=== PATIENT | male | born 1955 | race Caucasian/White ===

== ENCOUNTER → 2017-12-16 13:47 | Outpatient (CLI) | payer BC, SELFPAY ==
--- NOTE | 2017-12-16 13:59 | XR_ITS ---
XR chest 2V HISTORY: ITS.REASON: SHORTNESS OF BREATH ORDERING PHYSICIAN: Donald Garcia PATIENT AGE: 62 years COMPARISON: None FINDINGS: The cardiomediastinal silhouette and pulmonary vascularity are within normal limits. The lungs are clear without infiltrates, suspicious nodules, or pleural effusions. No acute bony abnormalities. There are multilevel degenerative changes of the thoracic spine. IMPRESSION: Negative chest, no acute finding
[2017-12-16 14:23] LABS: INR 0.94 (0.9-1.1); Prothrombin Time 9.7 seconds (9.4-11.8)
[2017-12-16 14:25] LABS: Basophils # 0.1 K/mm3 (0-0.2); Basophils % 1.3 % (0.1-2.0); Eosinophils # 0.2 K/mm3 (0.0-0.4); Eosinophils % 2.7 % (0.1-12.0); Hematocrit 49.8 % (42.0-52.0); Hemoglobin 16.5 g/dL (14.1-18.0); Lymphocytes # 2.1 K/mm3 (0.7-4.5); Lymphocytes % 29.4 K/mm3 (10-50); Mean Corpuscular HGB Conc 33.2 g/dL (31.8-35.4); Mean Corpuscular Hemoglobin 27.6 pg (27.0-31.2); Mean Corpuscular Volume 83.2 fl (80-94); Mean Platelet Volume 7.8 fl (7.4-10.4); Monocytes # 0.5 K/mm3 (0.1-1.0); Monocytes % 6.7 % (1.7-9.3); Neutrophils # 4.2 K/mm3 (1.8-7.8); Neutrophils % 59.9 % (37.0-80.0); Platelet Count 261 K/mm3 (142-424); Red Blood Count 5.99 M/mm3 (4.60-6.20); Red Cell Distribution Width 13.4 % (11.5-17.5)
[2017-12-16 14:58] LABS: Hemoglobin A1C 5.3 % (0.0-7.0)
[2017-12-16 15:16] LABS: Alanine Aminotransferase 24 U/L (12-78); Albumin Level 3.9 gm/dL (3.4-5.0); Albumin/Globulin Ratio 1.1 (1.1-1.8); Alkaline Phosphatase 81 U/L (46-116); Anion Gap 15.6 mEq/L (5-15); Aspartate Amino Transferase 15 U/L (15-37); Bilirubin,Total 0.6 mg/dL (0.2-1.0); Blood Urea Nitrogen 17 mg/dL (7-18); Calcium 9.7 mg/dL (8.5-10.1); Carbon Dioxide 26 mmol/L (21.0-32.0); Chloride 106 mmol/L (98-107); Estimated Glomerular Filt Rate 67 ml/min (>60); GFR (African American) 82 ML/MIN (>60); Globulin 3.6 gm/dl (1.3-3.2); Glucose 92 mg/dL (74-106); Potassium 4.6 mmoL/L (3.5-5.1); Sodium 143 mmol/L (136-145); Total Protein,Serum 7.5 gm/dL (6.4-8.2)
== END ==
PROVIDERS: Visit Provider Orthopaedic Surgery
DX: Z01.818 Encounter for other preprocedural examination (principal); R07.9 Chest pain, unspecified; M17.12 Unilateral primary osteoarthritis, left knee; R68.89 Other general symptoms and signs; R82.90 Unspecified abnormal findings in urine; R73.09 Other abnormal glucose; R79.1 Abnormal coagulation profile
CPT/HCPCS: 36415; 71046; 80053; 83036; 85025; 85610

== ENCOUNTER → 2018-04-17 18:50 | Outpatient (REF) | payer BC, SELFPAY ==
[2018-04-17 19:13] LABS: Basophils # 0.1 K/mm3 (0-0.2); Basophils % 0.7 % (0.1-2.0); Eosinophils # 0.3 K/mm3 (0.0-0.4); Eosinophils % 3.2 % (0.1-12.0); Hemoglobin 14.4 g/dL (14.1-18.0); Lymphocytes # 1.8 K/mm3 (0.7-4.5); Lymphocytes % 19.1 K/mm3 (10-50); Mean Corpuscular HGB Conc 32.8 g/dL (31.8-35.4); Mean Corpuscular Hemoglobin 27.3 pg (27.0-31.2); Mean Corpuscular Volume 83.3 fl (80-94); Mean Platelet Volume 7.5 fl (7.4-10.4); Monocytes # 0.5 K/mm3 (0.1-1.0); Monocytes % 4.8 % (1.7-9.3); Neutrophils # 6.8 K/mm3 (1.8-7.8); Neutrophils % 72.3 % (37.0-80.0); Platelet Count 325 K/mm3 (142-424); Red Blood Count 5.28 M/mm3 (4.60-6.20); Red Cell Distribution Width 14.3 % (11.5-17.5); White Blood Count 9.3 K/mm3 (4.8-10.8)
[2018-04-17 20:48] LABS: Alanine Aminotransferase 20 U/L (12-78); Albumin Level 3.5 gm/dL (3.4-5.0); Albumin/Globulin Ratio 1.1 (1.1-1.8); Alkaline Phosphatase 109 U/L (46-116); Anion Gap 16.1 mEq/L (5-15); Aspartate Amino Transferase 13 U/L (15-37); Bilirubin,Total 0.4 mg/dL (0.2-1.0); Blood Urea Nitrogen 14 mg/dL (7-18); Calcium 8.7 mg/dL (8.5-10.1); Carbon Dioxide 23 mmol/L (21.0-32.0); Chloride 107 mmol/L (98-107); Chol/HDL Ratio 4.1 (1-3.5); Cholesterol 186 mg/dL (140-200); Creatinine,Serum 1.07 mg/dL (0.70-1.30); Estimated Glomerular Filt Rate 70 ml/min (>60); GFR (African American) 84 ML/MIN (>60); Globulin 3.2 gm/dl (1.3-3.2); Glucose 95 mg/dL (74-106); HDL Cholesterol 45 mg/dL (27-67); LDL Cholesterol 81 mg/dL (0-130); Potassium 4.1 mmoL/L (3.5-5.1); Sodium 142 mmol/L (136-145); T4 (Thyroxine) 8.8 ug/dl (4.7-13.3); Total Protein,Serum 6.7 gm/dL (6.4-8.2); Triglycerides 300 mg/dL (30-200); VLDL Cholesterol 60 mg/dL (0-40)
[2018-04-20 09:27] LABS: PSA, Free 0.34 ng/mL; Prostate Specific Ag 2.3 ng/mL (0.0-4.0); Vitamin D 25 Hydroxy 38.1 ng/mL (30.0-100.0)
== END ==
LOC: LAB 18:50
PROVIDERS: PCP Physician Assistant; Visit Provider Physician Assistant
DX: Z00.00 Encounter for general adult medical examination without abnormal findings (principal)
CPT/HCPCS: 80053; 80061; 82652; 84153; 84154; 84436; 84443; 85025

== ENCOUNTER 2020-06-17 09:38 | Emergency (ER) | payer MEDICARE, SELFPAY ==
[2020-06-17 09:39] VITALS: BP 139/78; PULSE 88; RESP 18; TEMP 37.2; O2SAT 98; BMI 35.3
--- NOTE | 2020-06-17 10:01 | HMH.EDGENADL ---
ED Disposition Clinical Impression: Elevated TSH, Transaminitis Fatigue Qualifiers: Fatigue type: unspecified Qualified Code(s): R53.83 - Other fatigue Disposition: Home, Self-Care Condition on Discharge: Good Referrals: Alexia House APRN [Primary Care Provider] - - Critical Care Critical Care Time: No Attestation: On 06/17/20, the high probability of a clinically significant, sudden or life threatening deterioration of the following system(s) required my full and direct attention, intervention and personal management. The time I documented below is in addition to time spent performing reported procedures but includes the following listed in this critical care notation. Medical Decision Making - Monster Inquiry Pt receiving controlled substance: No Vital Signs: 06/17/20 09:39 06/17/20 10:35 Temperature 99 F Temperature Source Oral Pulse Rate [Radial] 88 74 Respiratory Rate 18 18 Blood Pressure [Right Arm] 139/78 127/72 Blood Pressure Mean [Right Arm] 98 90 Blood Pressure Source [Right Arm] Automatic Cuff Blood Pressure Position [Right Arm] Sitting Sitting 02 Sat by Pulse Oximetry 98 96 Oxygen Delivery Method Room Air - Lab Data Lab Results 06/17/20 10:10: WBC 10.8, RBC 5.91, Hgb 16.5, Hct 48.4, MCV 81.9, MCH 27.9, MCHC 34.1, RDW 14.1, Plt Count 207, MPV 7.7, Neut % (Auto) 38.7, Lymph % (Auto) 55.3 H, [place] % (Auto) 3.2, Eos % (Auto) 0.6, Baso % (Auto) 2.3 H, Neut # (Auto) 4.2, Lymph # (Auto) 6.0 H, [place] # (Auto) 0.4, Eos # (Auto) 0.1, Baso # (Auto) 0.2, Total Counted 100, Neutrophils % (Manual) 40 L, Lymphocytes % (Manual) 51 H, Monocytes % (Manual) 7, Blast Cells % 2.0, Platelet Estimate Normal, Microcytosis 1+ 06/17/20 10:10: Sodium 134 L, Potassium 4.1, Chloride 102, Carbon Dioxide 25, Anion Gap 11.1, BUN 14, Creatinine 1.30 H, Estimated Creat Clear 88, Estimated GFR 55 L, Est GFR ( Amer) 67, Glucose 117 H, Calcium 8.8, Total Bilirubin 1.1, AST 90 H, ALT 89 H, Alkaline Phosphatase 112, Total Protein 7.1, Albumin 3.6, Globulin 3.5 H, Albumin/Globulin Ratio 1.0 L, TSH 6.82 H 06/17/20 10:40: Urine Color Yellow, Urine Appearance Clear, Urine pH 5.5, Ur Specific [place] >= 1.030, Urine Protein 1+, Urine Glucose (UA) Negative, Urine Ketones Negative, Urine Blood Trace-i, Urine Nitrate Negative, Urine Bilirubin 1+ A, Urine Urobilinogen 0.2, Ur Leukocyte Esterase Negative, Urine RBC 3-5, Urine WBC 3-5, Ur Squamous Epith Cells Occasional Result diagrams: 06/17/20 10:10 06/17/20 10:10 Orders (Tests/Meds): ED MEDICATIONS Discontinued Medications Generic Name Dose Route Start Last Admin Trade Name Freq PRN Reason Stop Dose Admin Sodium Chloride 1,000 mls @ 999 mls/hr 06/17/20 10:00 06/17/20 10:00 Sod Chlor 0.9% 1000ml Bag IV 06/17/20 11:00 999 mls/hr .Q1H1M AL Administration ORDERS Category Date Time Status Hepatitis Panel (4) Stat Lab 06/17/20 10:36 Ordered Medical Decision Narrative: 64yo M evaluated for weakness. Broad differential diagnosis. Discussed with the patient we may not find a definitive diagnosis for his concerns given they have been ongoing for greater than 2 weeks. CBC, CMP, UA were obtained. CBC is largely unremarkable. CMP shows mild dehydration without acute kidney injury. Also noted are elevation in his liver enzymes. In light of this, hepatitis panel was sent. Hepatitis panel is a send out and therefore will not be available today. Urinalysis was largely unremarkable. Also obtained a TSH which is high. Patient's had a previous TSH levels obtained here and they have all been elevated. Discussed with the patient and his at bedside that he should follow-up for likely hypothyroidism. General Adult HPI - General Chief complaint: Weakness Stated complaint: possible dehydration Time Seen by Provider: 06/17/20 10:02 Mode of Arrival: Ambulatory Limitations: No Limitations Description of Symptoms (Recalled from ER Triage Doc. by RN): TO ED
--- NOTE | 2020-06-17 10:16 | ECG_ITS ---
APPROVED REPORT Exam: Resting ECG HR:76 bpm ECG Measurements Heart Rate 76 AXES NH 168 P 65 QRSd 84 QRS 41 QT 398 T 45 QTc 447 Conclusion Normal sinus rhythm Normal ECG Electronically signed by : Ismael Adams, 06/18/2020 07:39:13
[2020-06-17 10:23] LABS: Basophils # 0.2 K/mm3 (0-0.2); Basophils % 2.3 % (0.1-2.0); Eosinophils # 0.1 K/mm3 (0.0-0.4); Eosinophils % 0.6 % (0.1-12.0); Hematocrit 48.4 % (42.0-52.0); Hemoglobin 16.5 g/dL (14.1-18.0); Lymphocytes % 55.3 % (10-50); Mean Corpuscular HGB Conc 34.1 g/dL (31.8-35.4); Mean Corpuscular Hemoglobin 27.9 pg (27.0-31.2); Mean Corpuscular Volume 81.9 fl (80-94); Mean Platelet Volume 7.7 fl (7.4-10.4); Monocytes # 0.4 K/mm3 (0.1-1.0); Monocytes % 3.2 % (1.7-9.3); Neutrophils # 4.2 K/mm3 (1.8-7.8); Neutrophils % 38.7 % (37.0-80.0); Platelet Count 207 K/mm3 (142-424); Red Blood Count 5.91 M/mm3 (4.60-6.20); Red Cell Distribution Width 14.1 % (11.5-17.5); White Blood Count 10.8 K/mm3 (4.8-10.8)
[2020-06-17 10:25] LABS: MANUAL DIFFERENTIAL MANUAL DIFFERENTIAL (MANUAL DIFF)
[2020-06-17 10:27] LABS: Chloride 102 mmol/L (98-107); Sodium 134 mmol/L (136-145)
[2020-06-17 10:28] LABS: Potassium 4.1 mmoL/L (3.5-5.1)
[2020-06-17 10:30] LABS: Alanine Aminotransferase 89 U/L (12-78); Albumin Level 3.6 g/dl (3.5-5.0); Alkaline Phosphatase 112 U/L (38-126); Aspartate Amino Transferase 90 U/L (17-59); Bilirubin,Total 1.1 mg/dl (0.2-1.3); Blood Urea Nitrogen 14 mg/dl (9-20); Creatinine Clearance Estimated 88 mL/min (50-200); Estimated Glomerular Filt Rate 55 ml/min (>60); GFR (African American) 67 ML/MIN (>60)
[2020-06-17 10:31] LABS: Anion Gap 11.1 mEq/L (5-15); Calcium 8.8 mg/dl (8.4-10.2); Carbon Dioxide 25 mmol/L (22.0-30.0); Globulin 3.5 g/dL (1.3-3.2); Glucose 117 mg/dl (74-100); Total Protein,Serum 7.1 g/dl (6.3-8.2)
[2020-06-17 10:35] VITALS: BP 127/72; PULSE 74; RESP 18; O2SAT 96
[2020-06-17 10:45] LABS: Microscopic, Urine URINE MICROSCOPIC (MICROSCOPIC)
[2020-06-17 10:58] LABS: Appearance,Urine CLEAR (Clear); Blood, Urine TRACE-I (Negative); Color,Urine YELLOW (Yellow); Glucose,Urine (UA) Negative (Negative); Ketones,Urine Negative (Negative); Leukocyte Esterase,Urine Negative (Negative); Nitrate,Urine Negative (Negative); PH,Urine 5.5 (5.0-8.5); Protein,Urine 1+ (Negative); Specific Gravity, Urine >= 1.030 (1.005-1.030); Urobilinogen,Urine 0.2 EU/dl (0.2)
[2020-06-17 10:59] LABS: Lymphocytes % 51 % (10-50); Microcytosis 1+; Monocytes % 7 % (2-9); Neutrophils % 40 % (42-76); Platelet Estimate Normal; Total Cells Counted 100
[2020-06-17 11:00] VITALS: BP 120/68; PULSE 73; O2SAT 94
[2020-06-17 11:01] LABS: Thyroid Stimulating Hormone 6.82 uIU/mL (0.465-4.68)
[2020-06-17 11:02] LABS: Bilirubin,Urine 1+ (Negative); Squamous Epithelial Cell,Urine Occasional #/hpf (0-5)
[2020-06-17 11:25] VITALS: BP 113/65; PULSE 77; RESP 18; O2SAT 95
[2020-06-17 11:39] VITALS: BP 113/65; PULSE 73; RESP 16; TEMP 36.6; O2SAT 98
[2020-06-20 08:33] LABS: Hep A Ab, IgM Negative (Negative); Hepatitis B Core Antibody IgM Negative (Negative); Hepatitis B Surface Antigen Negative (Negative)
[2020-06-20 09:59] LABS: Hepatitis C Antibody <0.1 s/co ratio (0.0-0.9)
== END 2020-06-17 11:41 | disposition home or self-care (01) ==
PROVIDERS: Emergency Provider Family Medicine; PCP Nurse Practitioner
DX: R53.83 Other fatigue (principal); R74.01 Elevation of levels of liver transaminase levels; R79.89 Other specified abnormal findings of blood chemistry; I10 Essential (primary) hypertension; Z79.899 Other long term (current) drug therapy
CPT/HCPCS: 80053; 80074; 81001; 84443; 85007; 85025; 93005; 96365; 99283

== ENCOUNTER → 2020-08-25 10:24 | Outpatient (CLI) | payer MEDICARE, SELFPAY ==
--- NOTE | 2020-08-25 10:31 | XR_ITS ---
PROCEDURE: XR HIP LT 2-3V W/PELVIS CLINICAL INDICATION: LT HIP PAIN COMPARISON: No exams were available for comparison FINDINGS: There are mild osteoarthritic changes involving both hips. No fracture or dislocation. No lytic or blastic change. IMPRESSION: Mild osteoarthritis of the hips Dictated by: Duke Holt MD 08/25/2020 13:56 Duke Holt MD in OV 08/25/2020 13:56
--- NOTE | 2020-08-25 10:31 | XR_ITS ---
PROCEDURE: XR HIP RT 2-3V W/PELVIS CLINICAL INDICATION: RT HIP PAIN COMPARISON: No exams were available for comparison FINDINGS: Mild osteoarthritic change. No acute fracture or dislocation is evident. Prominent bony hypertrophy is present at the lateral acetabular region. . IMPRESSION: Osteoarthritic change of the hips. No acute finding Dictated by: Duke Holt MD 08/25/2020 13:54 Dkue Holt MD in [place] 08/25/2020 13:54
== END ==
PROVIDERS: PCP Nurse Practitioner; Visit Provider Nurse Practitioner
DX: M25.551 Pain in right hip (principal)
CPT/HCPCS: 73502

== ENCOUNTER → 2022-03-13 06:33 | Outpatient (CLI) | payer MEDICARE, SELFPAY ==
[2022-03-13 20:44] LABS: Basophils # 0.8 K/mm3 (0-0.2); Basophils % 5.7 % (0.1-2.0); Eosinophils # 0.2 K/mm3 (0.0-0.4); Eosinophils % 1.6 % (0.1-12.0); Hematocrit 49.1 % (42.0-52.0); Hemoglobin 16.3 g/dL (14.1-18.0); Lymphocytes % 49.7 % (10-50); Mean Corpuscular HGB Conc 33.3 g/dL (31.8-35.4); Mean Corpuscular Hemoglobin 28.6 pg (27.0-31.2); Mean Corpuscular Volume 85.9 fl (80-94); Monocytes # 0.7 K/mm3 (0.1-1.0); Monocytes % 5.3 % (1.7-9.3); Neutrophils # 6.1 K/mm3 (1.8-7.8); Neutrophils % 43.4 % (37.0-80.0); Platelet Count 260 K/mm3 (142-424); Red Blood Count 5.71 M/mm3 (4.60-6.20); Red Cell Distribution Width 14.8 % (11.5-17.5)
[2022-03-13 22:09] LABS: Alanine Aminotransferase 17 U/L (12-78); Albumin Level 4.2 g/dl (3.5-5.0); Albumin/Globulin Ratio 1.4 (1.1-1.8); Alkaline Phosphatase 91 U/L (38-126); Anion Gap 15.6 mEq/L (5-15); Aspartate Amino Transferase 25 U/L (17-59); Bilirubin,Total 0.7 mg/dl (0.2-1.3); Blood Urea Nitrogen 14 mg/dl (9-20); Calcium 9.3 mg/dl (8.4-10.2); Carbon Dioxide 25 mmol/L (22.0-30.0); Chloride 102 mmol/L (98-107); Chol/HDL Ratio 5.1 (1-3.5); Cholesterol 209 mg/dl (140-200); Estimated Glomerular Filt Rate 74 ml/min (>60); GFR (African American) 90 ML/MIN (>60); Glucose 78 mg/dl (74-100); HDL Cholesterol 41 mg/dl (40-60); Potassium 4.6 mmoL/L (3.5-5.1); Sodium 138 mmol/L (136-145); Total Protein,Serum 7.2 g/dl (6.3-8.2); Triglycerides 215 mg/dl (30-150); VLDL Cholesterol 43 mg/dL (0-40)
[2022-03-13 22:20] LABS: Direct LDL Cholesterol 126.14 mg/dL (100-129)
[2022-03-13 22:40] LABS: Prostate Specific Ag Screen 8.4 ng/ml (0.0-4.0); Thyroid Stimulating Hormone 5.04 uIU/mL (0.465-4.68)
== END ==
PROVIDERS: PCP Physician Assistant; Visit Provider Physician Assistant
DX: Z01.818 Encounter for other preprocedural examination; Z12.5 Encounter for screening for malignant neoplasm of prostate; R79.89 Other specified abnormal findings of blood chemistry; R53.83 Other fatigue
CPT/HCPCS: 80053; 80061; 84443; 85025; G0103

== ENCOUNTER → 2022-03-21 14:39 | Outpatient (CLI) | payer MEDICARE, SELFPAY ==
--- NOTE | 2022-03-21 14:44 | CA_ITS ---
APPROVED REPORT EXAM: Comprehensive 2D, Doppler, and color-flow Echocardiogram Manager Service Desk: Vikki Bond CRT Ht: 5 ft 10 in Wt: 237lbs BSA: 2.24 BP: 142/88 mmHg Indications: Murmur, pre-op 2D Dimensions LVOT 1.98 cm (M/F) 1.5-2.5 LA Volume 27.00 mL LA Volume Index 12.10 mL/m2 (M/F) 16-34 M-Mode Dimensions RVDd 3.36 cm (0.9-2.6) LA Diam 3.25 cm (1.9-4.0) LVDd 4.70 cm (3.5-5.7) Ao Diam 4.41 cm (2.0-3.7) LVDs 3.43 cm (3.5-5.7) IVSd 1.44 cm (0.6-1.1) PWd 0.76 cm (0.6-1.1) EF (Teich) 52.60% FS 27.00% EDV (Teich) 102.40 mL TAPSE 2.30 (<1.7) ESV (Teich) 48.50 mL LV Diastology MED E' 5.70 (< 7 cm/sec) MED A' 12.00 cm/s LAT E' 4.60 (<10 cm/sec) LAT A' 11.10 cm/s Aortic Valve AO Peak GR. 5.20 mmHg Pulmonary Valve PV Peak Velocity 152.00 (50-150 cm/s) Tricuspid Valve TR P. Velocity 234.00 cm/s RAP Estimate 10.00 mmHg RVSP 31.90 mmHg Left Ventricle Left atrium is mildly enlarged, left ventricle is normal size mild concentric left ventricular hypertrophy, estimated ejection fraction 55% with no regional wall motion abnormality, grade 1 diastolic dysfunction seen without tissue Doppler evidence of raise left atrial pressure. Right Ventricle Right atrium and right ventricle are normal size and contractility. Aortic Valve Aortic valve is minimally thickened and calcified without aortic stenosis aortic insufficiency. Mitral Valve Mitral valve grossly normal, there is trace mitral regurgitation. Tricuspid Valve Tricuspid valve grossly normal, there is trace tricuspid regurgitation, tricuspid regurgitation jet velocity is inadequate for calculation of the right ventricular systolic pressure. Pulmonic Valve Pulmonic valve is poorly visualized. Great Vessels Aortic root is normal size. Inferior vena cava is poorly visualized. Pericardium No significant pericardial effusion noted. Conclusion 1. Mildly dilated left atrium, normal left ventricular size, mild concentric left ventricular hypertrophy, estimated ejection fraction 55% with no regional wall motion abnormality, grade 1 diastolic dysfunction seen without tissue Doppler evidence of raise left atrial pressure. 2. Trace mitral and tricuspid regurgitation. 3. No significant pericardial effusion noted. Electronically signed by : Talha Posada MD 03/22/2022 06:02:37
== END ==
PROVIDERS: PCP Physician Assistant; Visit Provider Nurse Practitioner Family
DX: R01.1 Cardiac murmur, unspecified (principal)
CPT/HCPCS: 93306

== ENCOUNTER → 2023-03-18 13:43 | Outpatient (CLI) | payer MEDICARE, SELFPAY ==
[2023-03-18 11:32] LABS: Basophils # 0.1 K/mm3 (0-0.2); Basophils % 1.2 % (0.1-2.0); Eosinophils # 0.2 K/mm3 (0.0-0.4); Eosinophils % 1.8 % (0.1-12.0); Hematocrit 50.7 % (42.0-52.0); Hemoglobin 16.3 g/dL (14.1-18.0); Lymphocytes # 4.2 K/mm3 (0.7-4.5); Lymphocytes % 50.3 % (10-50); Mean Corpuscular HGB Conc 32.1 g/dL (31.8-35.4); Mean Corpuscular Volume 84.1 fl (80-94); Monocytes # 0.5 K/mm3 (0.1-1.0); Monocytes % 6.1 % (1.7-9.3); Neutrophils # 3.4 K/mm3 (1.8-7.8); Neutrophils % 40.6 % (37.0-80.0); Platelet Count 262 K/mm3 (142-424); Red Blood Count 6.03 M/mm3 (4.60-6.20); Red Cell Distribution Width 13.6 % (11.5-17.5); White Blood Count 8.3 K/mm3 (4.8-10.8)
[2023-03-18 11:41] LABS: MANUAL DIFFERENTIAL MANUAL DIFFERENTIAL (MANUAL DIFF)
[2023-03-18 12:05] LABS: Alanine Aminotransferase 21 U/L (12-78); Albumin Level 4.3 g/dl (3.5-5.0); Albumin/Globulin Ratio 1.3 (1.1-1.8); Alkaline Phosphatase 79 U/L (38-126); Anion Gap 14.6 mEq/L (5-15); Aspartate Amino Transferase 23 U/L (17-59); Bilirubin,Total 0.6 mg/dl (0.2-1.3); Blood Urea Nitrogen 19 mg/dl (9-20); Calcium 9.8 mg/dl (8.4-10.2); Carbon Dioxide 24 mmol/L (22.0-30.0); Chloride 104 mmol/L (98-107); Chol/HDL Ratio 5.8 (1-3.5); Cholesterol 231 mg/dl (140-200); Estimated Glomerular Filt Rate 74 ml/min (>60); GFR (African American) 90 ML/MIN (>60); Globulin 3.4 g/dL (1.3-3.2); Glucose 96 mg/dl (74-100); HDL Cholesterol 40 mg/dl (40-60); Potassium 4.6 mmoL/L (3.5-5.1); Sodium 138 mmol/L (136-145); Total Protein,Serum 7.7 g/dl (6.3-8.2); Triglycerides 301 mg/dl (30-150); VLDL Cholesterol 60 mg/dL (0-40)
[2023-03-18 12:16] LABS: Direct LDL Cholesterol 126.73 mg/dL (100-129)
[2023-03-18 12:22] LABS: 25-OH Vitamin D, Total 41.5 ng/mL (30-100)
[2023-03-18 12:36] LABS: Prostate Specific Ag Screen 2.2 ng/ml (0.0-4.0); Thyroid Stimulating Hormone 5.05 uIU/mL (0.465-4.68)
[2023-03-18 15:19] LABS: Lymphocytes % 55 % (10-50); Monocytes % 3 % (2-9); Neutrophils % 42 % (42-76); Platelet Estimate Normal; RBC Morphology Normal; Total Cells Counted 100
== END ==
PROVIDERS: PCP Physician Assistant; Visit Provider Physician Assistant
DX: E55.9 Vitamin D deficiency, unspecified (principal); Z12.5 Encounter for screening for malignant neoplasm of prostate; M25.562 Pain in left knee; R79.89 Other specified abnormal findings of blood chemistry; R53.83 Other fatigue; Z00.00 Encounter for general adult medical examination without abnormal findings
CPT/HCPCS: 80053; 80061; 82306; 84443; 85007; 85025; G0103

== ENCOUNTER 2023-11-04 16:41 | Outpatient (CLI) | payer MEDICARE, SELFPAY ==
--- NOTE | 2023-11-04 16:59 | XR_ITS ---
PROCEDURE INFORMATION: Exam: XR Right Ankle Exam date and time: 11/04/2023 5:01 PM Age: 67 years old Clinical indication: Pain; Ankle; Right; Additional info: Right ankle pain TECHNIQUE: Imaging protocol: Radiologic exam of the right ankle. Views: 3 or more views. COMPARISON: No relevant prior studies available. FINDINGS: Bones/joints: Minimal enthesophyte plantar margin of the calcaneus at the site of attachment of the plantar aponeurosis. Focal enthesophyte at the site of Achilles tendon attachment. 4 mm calcific focus adjacent to the medial malleolus. Findings suboptimally visualized however most suggestive of a secondary ossification center. Clinically correlate regarding region of patient is symptoms. Soft tissues: Mild soft tissue swelling superficial to the medial malleolus. IMPRESSION: 4 mm calcific focus adjacent to the medial malleolus. Findings suboptimally visualized however most suggestive of a secondary ossification center. Clinically correlate regarding region of patient's symptoms.
[2023-11-04 18:24] LABS: Alanine Aminotransferase 28 U/L (12-78); Albumin Level 4.3 g/dl (3.5-5.0); Albumin/Globulin Ratio 1.4 (1.1-1.8); Alkaline Phosphatase 74 U/L (38-126); Anion Gap 13.3 mEq/L (5-15); Aspartate Amino Transferase 29 U/L (17-59); Bilirubin,Total 0.9 mg/dl (0.2-1.3); Blood Urea Nitrogen 13 mg/dl (9-20); Calcium 9.7 mg/dl (8.4-10.2); Carbon Dioxide 28 mmol/L (22.0-30.0); Chloride 104 mmol/L (98-107); Estimated Glomerular Filt Rate 60 ml/min (>60); GFR (African American) 73 ML/MIN (>60); Glucose 86 mg/dl (74-100); Potassium 4.3 mmoL/L (3.5-5.1); Sodium 141 mmol/L (136-145); Total Protein,Serum 7.3 g/dl (6.3-8.2); Uric Acid 7.5 mg/dl (3.5-8.5)
[2023-11-04 19:04] LABS: Basophils # 0.1 K/mm3 (0-0.2); Basophils % 1.4 % (0.1-2.0); Eosinophils # 0.1 K/mm3 (0.0-0.4); Eosinophils % 1.4 % (0.1-12.0); Hematocrit 48.6 % (42.0-52.0); Hemoglobin 16.1 g/dL (14.1-18.0); Lymphocytes # 3.7 K/mm3 (0.7-4.5); Lymphocytes % 37.7 % (10-50); Mean Corpuscular HGB Conc 33.1 g/dL (31.8-35.4); Mean Corpuscular Hemoglobin 28.2 pg (27.0-31.2); Mean Corpuscular Volume 85.3 fl (80-94); Mean Platelet Volume 8.8 fl (7.4-10.4); Monocytes # 0.7 K/mm3 (0.1-1.0); Monocytes % 7.4 % (1.7-9.3); Platelet Count 266 K/mm3 (142-424); White Blood Count 9.7 K/mm3 (4.8-10.8)
== END 2023-11-04 23:59 | disposition home or self-care (01) ==
LOC: LAB 16:42
PROVIDERS: PCP Physician Assistant; Visit Provider Family Medicine
DX: M25.562 Pain in left knee (principal); M25.561 Pain in right knee; G89.29 Other chronic pain; M25.571 Pain in right ankle and joints of right foot; M25.472 Effusion, left ankle
CPT/HCPCS: 36415; 73610; 80053; 84550; 85025

== ENCOUNTER 2024-12-31 09:55 | Outpatient (CLI) | payer MEDICARE, SELFPAY ==
--- NOTE | 2024-12-31 09:58 | US_ITS ---
FINAL REPORT CLINICAL HISTORY: LT HIP/ MASS OF JOINT FINDINGS: Limited sonographic images were obtained of the soft tissues in the left hip at the region of reported palpable abnormality. There is a large hypoechoic area in the lateral left hip measuring 5.5 x 2.6 cm. It is lobular and on flow images demonstrates what may be minimal flow in the central portion but favored to be artifact. This is likely related to a seroma. IMPRESSION: Probable seroma at the region of interest. Recommend infused CT through the pelvis to better evaluate. Reviewed, Interpreted and Dictated by Cullen Sanford MD Transcribed by Candi Blum Authenticated and [facility]
--- OUTSIDE RECORDS SUMMARY | 2024-12-31 09:58 | XMS_ITS | Encounter Summary ---
Author Organization [employer] ([place], [place], [place], [place]) Address [address] [place] [address] Care Team Providers Care Liquor Clerk Name Role Phone Sheron Starks PA-C Primary Care Provider Reason for Visit * Reason Comments Medication Refill Encounter Details Date Type Department Care Team (Late st Contact Info) Description 04/13/2023 Refill [facility] Cardiology [address] [place] [address] Hung Sinha MD [address] [facility] [address] [place] [address] Primary hypertension Social History Tobacco Use Types Packs/Day Years Used Date Smoking Tobacco: Former Cigarettes Q uit: 2005 Smokeless Tobacco: Never Alcohol Use Standard Drinks/Week Comments Yes 3 (1 standard drink = 0.6 oz pur e alcohol) Sex and Gender Information Value Date Recorded Sex Assigned at Not on file Legal Sex Male 6:30 PM CDT Gender Identity Not on file Sexual Orientation Not on file documented as of this encounter Plan of Treatment Not on file documented as of this encounter Visit Diagnoses Diagnosis Primary hypertension Unspecified essential hypertension documented in this encounter Care Teams Liquor Clerk Relationship Specialty Start Date End Date Sheron Starks PA-C [address] [place] [address] PCP - General Physician Lining Brusher 05/10/22 documented as of this encounter
--- OUTSIDE RECORDS SUMMARY | 2024-12-31 09:58 | XMS_ITS | Referral Summary ---
Author Organization [employer] ([place], [place], [place], [place]) Address [address] [place] [address] Care Team Providers Care Resident Intern Name Role Phone Sheron Starks PA-C Primary Care Provider [phone] Allergies Active Allergy Reactions Criticality Noted Date Comments Ldqdnnm-Jlg-Pkh Reductase Inhibitors Medium 10/28/2020 Other reaction(s): Other (See Comments) Extreme fatigue and weakness Medications esomeprazole (NexIUM) 20 MG capsule Take 1 capsule (20 mg total) by mouth daily. Active valsartan (DIOVAN) 80 MG tablet Take 1 tablet (80 mg total) by mouth in the morning. 90 tablet 2 03/11/2024 Active Active Problems Problem Noted Date Diagnosed Date Dyspnea on exertion 05/10/2022 Class 1 obesity due to exces s calories with body mass index (BMI) of 34.0 to 34.9 in adult, unspecified whether serious comorbidity present 05/10/2022 Mixed hyperlipidemia 05/10/2022 Primary hypertension 05/10/2022 Heart murmur 05/10/2022 Resolved Problems Problem Noted Date Diagnosed Date Resolved Date Coronary artery disease invo lving [place] coronary artery of [place] heart, unspecified whether angina present 06/08/2022 06/08/2022 Social History Tobacco Use Types Packs/Day Years Used Date Smoking Tobacco: Former Cigarettes Q uit: 2004 Smokeless Tobacco: Never Tobacco Cessation:Counseling Given: Yes Alcohol Use Standard Drinks/Week Comments Yes 3 (1 standard drink = 0.6 oz pur e alcohol) Food Insecurity Answer Date Recorded Food run out past 12 months Not on file 06/24 Food did not last past 12 months Not on file 07/05/2023 Employment Answer Date Recorded Help finding and keeping a job Not on file 0 07/05/2023 Family and Community Support Answer [place] e Recorded Help with Day to Day Activities Not on file 07/05/2023 Feeling Lonely or Isolated Not on file 07/05 Educational Attainment Answer Date Angel rded Speak language other than Malaysian at home Not on file 07/05/2023 Want help with school or training Not on file 07/05/2023 Substance Use Answer Date Recorded Used prescription meds for non-medical reasons N ot on file 07/05/2023 Used illegal drugs past 12 months Not on file 07/05/2023 Sex and Gender Information Value Date Recorded Sex Assigned at Not on file Legal Sex Male 6:30 PM CDT Gender Identity Not on file Sexual Orientation Not on file Last Filed Vital Signs Vital Sign Reading Time Taken Comments Blood Pressure 140/90 03/10/2024 11:21 AM EDT Pulse 59 03/10/2024 11:21 AM EDT Temperature - - Respiratory Rate - - Oxygen Saturation - - Inhaled Oxygen Concentration - - Weight 109 kg (240 lb 3.2 oz) 03/10/2024 11:21 A M EDT Height 177.8 cm (5' 10 ) 09/04/2023 10:34 AM EDT Body Mass Index 34.47 09/04/2023 10:34 AM EDT Plan of Treatment Not on file Insurance [facility] MEDICARE HMO Care Teams Resident Intern Relationship Specialty Start Date End Date Sheron Starks PA-C [address] [place] [address] PCP - General Physician Elevator Erector Helper 05/10/22
--- OUTSIDE RECORDS SUMMARY | 2024-12-31 09:58 | XMS_ITS | Clinical Summary ---
Author Organization [facility] Address [address] [place] [address] Care Team Providers Care Linoleum Printer Name Role Phone Unavailable Primary Care Provider Unavailabl e Social History Tobacco Use Types Packs/Day Years Used Date Smoking Tobacco: Never Assessed Sex and Gender Information Value Date Recorded Sex Assigned at Not on file Legal Sex Male 7:37 PM EDT Gender Identity Not on file Sexual Orientation Not on file Last Filed Vital Signs Vital Sign Reading Time Taken Comments Blood Pressure - - Pulse - - Temperature - - Respiratory Rate - - Oxygen Saturation - - Inhaled Oxygen Concentration - - Weight 103 kg (227 lb 3 oz) 05/27/2014 8:[address] Height 177.8 cm (5' 10 ) 05/27/2014 8:08 AM EST Body Mass Index 32.6 05/27/2014 8:08 AM EST Plan of Treatment Health Maintenance Due Date Last Done Comments [facility]-Depression Screening 1955 [facility]-/Child/Adol SDOH Screenings 1955 [facility]- SDOH Screenings 11/11/1971 [facility]-Adult SDOH Screenings 11/11/1971 [facility]-DTaP,Tdap,and Td Vaccine s (1 - Tdap) 1972 CT Colonography 1998 Colonoscopy 1998 FIT-DNA 1998 FIT 1998 FOBT 1998 Sigmoidoscopy 1998 [facility]-Colorectal Cancer Screening 1998 [facility]-Pneumococcal Vaccine: 50 + Years (1 of 1 - PCV) 11/11/2003 [facility]-Zoster Vaccines (1 of 2) 11/11/2003 [id number] Vaccine (1 - 20 24-25 season) 2024 [facility]-Influenza Vaccine (#1) 2025 [facility]-RSV Vaccine: 60+ Years o r (1 - 1-dose 75+ series) 2028 HPV Vaccines Aged Out No longer eligi ble based on patient's age to complete this topic [facility]-HIB Vaccines Aged Out No longer e ligible based on patient's age to complete this topic [facility]-Hepatitis A Vaccines Aged Out No longer eligible based on patient's age to complete this topic [facility]-IPV Vaccines Aged Out No longer e ligible based on patient's age to complete this topic [facility]-Rotavirus Vaccines Aged Out No lo nger eligible based on patient's age to complete this topic
--- OUTSIDE RECORDS SUMMARY | 2024-12-31 09:58 | XMS_ITS | Clinical Summary ---
Author Organization [employer] ([place], [place], [place], [place]) Address [address] [place] [address] Care Team Providers Care Herpetology Teacher Name Role Phone Sheron Starks PA-C Primary Care Provider Allergies Active Allergy Reactions Criticality Noted Date Comments Sbfcwxa-Odu-Zap Reductase Inhibitors Medium 10/28/2020 Other reaction(s): Other [...] Resolved Date Coronary artery disease invo lving [place] coronary artery of [place] heart, unspecified whether angina present 06/08/2022 06/08/2022 [...] Date Angel rded Speak language other than Moroccan at home Not on file 07/05/2023 Want [...] 09/04/2023 10:34 AM EDT Plan of Treatment Health Maintenance Due Date Last Done Comments CT Colonography 1953 Colonoscopy 1953 Colorectal Cancer Screening 1953 FOBT/FIT 1953 Fit-DNA (Cologuard) 1953 Sigmoidoscopy 1953 Depression Screening (12+) 1965 Hepatitis C Screening 11/11/1971 Shingles Vaccine (Zoster) (1 of 2) 11/11/2003 Abdominal Aortic Aneurysm (A AA) Screen 2018 Medicare Initial AWV [id number] 06/25/2023 COVID-19 VACCINE ( season) 2024 03/07/2022, 04/27/2021, 08/26/2020 Falls Risk Screening 06/24/2024 Influenza Vaccine (#1) 2025 0, 05/27/2019, 05/27/2019 Tobacco Cessation Counseling and Screening (12+) 03/10/2025 03/10/2024 Respiratory Syncytial Virus (RSV) Adult or (1 - 1-dose 75+ series) 2028 DTAP/TDAP/TD VACCINES (2 - T d or Tdap) 03/07/2029 03/07/2019 Pneumococcal 50+ years Completed 05/30/2020, 2018 Insurance [employer] MEDICARE HMO Care Teams Herpetology Teacher Relationship Specialty Start Date End Date Sheron Starks PA-C [address] [place] [address] PCP - General Physician Special Delivery Messenger 05/10/22
--- OUTSIDE RECORDS SUMMARY | 2024-12-31 09:58 | XMS_ITS | Data Portability ---
Author Organization [facility], [facility] Address [address] [place] [address] Assessment No assessment recorded. Plan of Treatment Reminders Order Date Submit Date Provider Last Modified By Organization Details Last Modified Time Details Appointments None recorded. Lab None recorded. Referral None recorded. Procedures None recorded. Surgeries None recorded. Imaging None recorded. Medication Orders dexamethaso ne sodium phosphate 4 mg/mL injection solution 2023 024 [email or web address] Not available 12:23:09 doxycycline hyclate 100 mg capsule 2023 024 [facility] #[id number], [address], [place], [address], 4 12:19:24 Patient TargetsNo targets recorded. Patient Instructions Encounter Date Encounter Id Patient Instructions Last Modified By Organization Details Last Modified Time 06/26/2023 [id number] cough: care instructions Not available 06/26/2023 12:19:22 Discharge Instructions Not available 06/26/2023 12:19:22 Acute Sinusitis: Care Instructions Not available 06/26/2023 12:19:22 Reason for Referral None Reported. Problems Name Problem SNOMED Code Status Onset Date Resolution Date Notes Provider Name and Address Organization Details Recorded Time Cough 07108921 Active 023 ZAIRA marsh [facility] 4 12:14:34 Congestion of nasal sinus 39181910 Active 023 ZAIRA marsh [facility] 4 12:14:58 Problem Notes None recorded. Procedures Surgical History Date Name Laterality Status Provider Name and Address Organization Details Recorded Time 3 Cataract Surgery completed ZAIRA SALGADO [facility] 06/26/2023 12:16:00 Knee replacement completed ZAIRA [facility] 06/26/2023 12:15:34 Imaging Results None recorded. Procedure Notes None recorded. Medical Equipment None Reported. Allergies Allergen ID Allergen Name Allergen Category Reaction Reaction Severity Criticality Documentation Date Start Date Code Code System Note Provider Name and Address Organization Details Recorded Time 46921 Product containin g 3-hydroxy -3-methyl glutaryl- coenzyme A reductase inhibitor (product) medicatio n anaphylax is severe Not available 06/26/2023 79584 009 SNOMED ZAIRA SALGADO [facility] 12:13:35 Medications Name Sig Start Date Stop Date Status Note LastModified by Organization Details LastModified Time amoxicillin 500 mg capsule TAKE 4 CAPSULES BY MOUTH 1 HOUR PRIOR TO PROCEDURE 06/26 completed Not Available Not Available Not Available doxycycline hyclate 100 mg capsule TAKE 1 CAPSULE BY MOUTH TWICE A DAY FOR 7 DAYS active Not Available Not Available No t Available trazodone 50 mg tablet TAKE 1 TABLET BY MOUTH EVERY NIGHT AT BEDTIME active Not Available Not Available No t Available azithromyci n 250 mg tablet TAKE 2 TABLETS BY MOUTH TODAY, THEN TAKE 1 TABLET DAILY FOR 4 DAYS DIRECTED active Not Available Not Available No t Available prednisone 20 mg tablet TAKE 1 TABLET BY MOUTH TWICE A DAY ADMINISTE R WITH FOOD OR MILK active Not Available Not Available No t Available valsartan 80 mg tablet TAKE 1 TABLET BY MOUTH EVERY DAY active Not Available Not Available No t Available dexamethaso ne sodium phosphate 4 mg/mL injection solution Inject 4 mg by intramusc ular route. 2023 active Not Available Not Available Not Avai lable bromphenira mine-pseudo ephedrine-D M 2 mg-30 mg-10 mg/5 mL oral syrup 06/26 completed Not Available Not Available Not Available tadalafil 20 mg tablet TAKE 1/2 TO 1 TABLET BY MOUTH EVERY 36 HOURS NEEDED active Not Available Not Available No t Available Vitals Date Recorded Heart rate Respiratory rate Oxygen saturation Oxygen saturation in Arterial blood by Pulse oximetry Body temperature Body height Body weight Systolic And Diastolic Provider Name and Address Organization Details Last Updated DateTime 4 89 /min 16 /min 95 % 95 % 98 [degF] 177.8 cm 439011. 17 g 138/93 mm[Hg] ZAIRA SALGADO [facility] 4 12:12:47 Social History Question Answer Notes LastModified by Organizat ion Details LastModified Time Tobacco Smoking Status Never Smoker ZAIRA marsh, [facility] 06/26/2023 12:15:06 Alcohol Use Occasional [email or web address] Information n ot available 06/26/2023 Are You Passively Exposed To Smoke? No [email or web address] Information not available 06/26/2023 Sex: Unknown Functional Status None recorded. Mental Status None recorded. Family History Nothing Reported. Medical History Condition Response Discussed with patient No Past Medical H x N High Cholesterol Y Past Encounters Encounter ID Performer Location Encounter Start Date Encounter Closed Date Diagnosis/Indication Diagnosis SNOMED-CT Code Diagnosis ICD10 Code Diagnosis Note [id number] Leandro Gunderson MD [facility] [address] [place] [address] 06/26/2023 11:04:12 06/26/2023 12:27:22 Acute sinusitis 19359461 J01.00 Nasal congestion 8891366 0 R09.81 Cough 94844877 R05.1 Malaise 028187433 R53.81 Health Concerns Section Related Observation LastModified by Organization Detai ls LastModified Time None Recorded Concern Status LastModified by Organization Details LastModified Time None Recorded Advance Directives Directive None Recorded Payers Insurance Date Sequence Insurance Name Policy Number Policy Myers Covered Member ID Myers Member ID Guarantor Name 06/26/2023 2 [place] Donny Fitch [id number] Hung Fitch 07/04/2023 1 [employer] - GOLD PLUS (MEDICARE REPLACEMENT/A DVANTAGE - HMO) Donny Fitch [id number] Hung Fitch 06/26/2023 1 [place] Hung Fitch [id number] Hung Fitch Notes Date Note Type Note Provider Name and Address Organization Details Recorded Time 06/26/2023 text/html Sinusitis UCReported bypatient.Locatio n:maxillary; frontal Quality:minimal discomfort Onset/ Duration:2 week(s) ago Timing:wax/wane; worse in the morning Severity:moderate Associated Symptoms:no fever/chills; no difficulty breathing;nasal discharge from both nostrils;headache forehead;facial pain bilaterally;sinus pain forehead;sore throat;thick phlegm in throat;constantly clearing the throat;nasal passage blockage bilaterally;ear fullness;[place] [address], [place], [address], [facility] - [facility], [facility] 06/26/2023 12:19:51
--- OUTSIDE RECORDS SUMMARY | 2024-12-31 09:58 | XMS_ITS | Continuity of Care Document ---
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 Previous PSA rise resolved with antibiotics. No recent prostate issues, current focus on monitoring PSA levels. Sinus Infections: - No current management necessary. [email or web address] Not available 12/02/2024 08:58:08 Plan of Treatment Reminders Order Date Submit Date Provider Last Modified By Organization Details Last Modified Time Details Appointments RECHECK 2024 09:30A M GISELLE ALMODOVAR MD Not available Not available Not available Lab PSA, total, serum or plasma 2024 025 [facility], [address] [place] [address], [phone], 12/02/2024 15:32:28 urinalysi s panel, auto 2024 025 [facility], [address] [facility] [address], [place], [address], 12/06/2024 11:51:02 Referral None recorded. Procedures None recorded. Surgeries None recorded. Imaging None recorded. Medication Orders None recorded. Patient TargetsNo targets recorded. Patient Instructions Encounter Date Encounter Id Patient Instructions Last Modified By Organization Details Last Modified Time 12/02/2024 [id number] - Get a blood test for PSA today. - Continue regular follow-up visits. - Watch for any new prostate or sinus symptoms and report if they occur. [email or web address] Not available 12/02/2024 08:58:10 Reason for Referral None Reported. Results Created Date Observation Date Name Description Value Unit Range Abnormal Flag Note LastModifiedBy Organization Detail LastModifiedTime 12/03/1912/02/2024 urina lysis panel , auto Unknown Analyte Clean Catch Not Available [facility] With [address], [place], [address], 12/02/2024 09:24:28 12/03/1912/02/2024 urina lysis panel , auto Unknown Analyte Yellow Not Available [facility] With [address] [place], [place], [address], 12/02/2024 09:24:28 12/03/19 25 12/02/2024 urina lysis panel , auto Unknown Analyte Clear Not Available [facility] With [address] [place], [place], [address], 12/02/2024 09:24:28 12/03/19 25 12/02/2024 urina lysis panel , auto Unknown Analyte 1.020 Not Available [facility] [place] [address], [place], [address], 12/02/2024 09:24:28 12/03/19 25 12/02/2024 urina lysis panel , auto Unknown Analyte 1.003 - 1.030 Not Available [facility] [place] [address], [place], [address], 12/02/2024 09:24:28 12/03/19 25 12/02/2024 urina lysis panel , auto Unknown Analyte 6.0 Not Available [facility] [address], [place], [address], 12/02/2024 09:24:28 12/03/19 25 12/02/2024 urina lysis panel , auto Unknown Analyte 5.0 - 8.0 Not Available [facility] [place] [address], [place], [address], 12/02/2024 09:24:28 12/03/19 25 12/02/2024 urina lysis panel , auto Unknown Analyte Negati ve Not Available [facility] [place] [address], [place], [address], 12/02/2024 09:24:28 12/03/19 25 12/02/2024 urina lysis panel , auto Unknown Analyte Negati ve Not Available [facility] [place] [address], [place], [address], 12/02/2024 09:24:28 12/03/19 25 12/02/2024 urina lysis panel , auto Unknown Analyte Negati ve Not Available [facility] [place] [address], [place], [address], 12/02/2024 09:24:28 12/03/19 25 12/02/2024 urina lysis panel , auto Unknown Analyte Negati ve Not Available [facility] [place] [address], [place], [address], 12/02/2024 09:24:28 12/03/19 25 12/02/2024 urina lysis panel , auto Unknown Analyte Negati ve Not Available [facility] [place] [address], [place], [address], 12/02/2024 09:24:28 12/03/19 25 12/02/2024 urina lysis panel , auto Unknown Analyte Negati ve Not Available [facility] [address], [place], [address], 12/02/2024 09:24:28 12/03/19 25 12/02/2024 urina lysis panel , auto Unknown Analyte Normal Not Available [facility] [place] [address], [place], [address], 12/02/2024 09:24:28 12/03/19 25 12/02/2024 urina lysis panel , auto Unknown Analyte Normal Not Available [facility] [address], [place], [address], 12/02/2024 09:24:28 12/03/19 25 12/02/2024 urina lysis panel , auto Unknown Analyte Negati ve Not Available [facility] [place] [address], [place], [address], 12/02/2024 09:24:28 12/03/19 25 12/02/2024 urina lysis panel , auto Unknown Analyte Negati ve Not Available [facility] [place] [address], [place], [address], 12/02/2024 09:24:28 12/03/19 25 12/02/2024 urina lysis panel , auto Unknown Analyte Normal Not Available [facility] [place] [address], [place], [address], 12/02/2024 09:24:28 12/03/19 25 12/02/2024 urina lysis panel , auto Unknown Analyte Normal Not Available [facility] [place] [address], [place], [address], 12/02/2024 09:24:28 12/03/19 25 12/02/2024 urina lysis panel , auto Unknown Analyte Negati ve Not Available [facility] With [address] [place], [place], [address], 12/02/2024 09:24:28 12/03/19 25 12/02/2024 urina lysis panel , auto Unknown Analyte Negati ve Not Available [facility] With [address], [place], [address], 12/02/2024 09:24:28 12/03/19 25 12/02/2024 urina lysis panel , auto Unknown Analyte Trace Not Available [facility] With [address], [place], [address], 12/02/2024 09:24:28 12/03/19 25 12/02/2024 urina lysis panel , auto Unknown Analyte Negati ve Not Available [facility] With [address], [place], [address], 12/02/2024 09:24:28 Result Notes None recorded. Problems Name Problem SNOMED Code Status Onset Date Resolution Date Notes Provider Name and Address Organization Details Recorded Time Prostate specific antigen above reference range 834597359 Active 025 GISELLE ALMODOVAR JR, MD [address] [place] [address], [address] , [facility] 08:54:54 Problem Notes None recorded. Procedures Surgical History Date Name Laterality Status Provider Name and Address Organization Details Recorded Time arthroplasty of knee completed [facility] 04/22/2024 10:33:52 cataract surgery completed [facility] 04/22/2024 10:35:03 Imaging Results None recorded. Procedure Notes None recorded. Medical Equipment None Reported. Allergies Allergen ID Allergen Name Allergen Category Reaction Reaction Severity Criticality Documentation Date Start Date Code Code System Note Provider Name and Address Organization Details Recorded Time 284052 Product containin g 3-hydroxy -3-methyl glutaryl- coenzyme A reductase inhibitor (product) medicatio n Not available Not available Not available 04/22/2024 [id number] 009 SNOMED Josselyn Erickson [facility] 10:32:03 Medications Name Sig Start Date Stop Date Status Note LastModified by Organization Details LastModified Time doxycycline monohydrate 100 mg capsule Take 1 capsule twice a day by oral route. 024 active Not Available Not Available Not Avai lable omeprazole active Not Available Not Av ailable Not Available Vitals Date Recorded Body height Body mass index (BMI) Body weight Provider Name and Address Organization Details Last Updated DateTime 12/02/2024 177.8 cm 35.6 kg/m2 413194.91 g Josselyn Erickson [facility] 12/02/2024 09:23:49 Social History Question Answer Notes LastModified by Organizat ion Details LastModified Time Tobacco Smoking Status Former Smoker Josselyn Erickson [facility] 04/22/2024 10:32:59 When Did You Quit Smoking? 16+yearssinc elastcigaret te [email or web address] Information not available 04/22/2024 What Was The Date Of Your Most Recent Tobacco Screening? 12/02/2024 [email or web address] Information not available 12/02/2024 What Is Your Relationship Status? [email or web address] Information not available 04/22/2024 How Much Tobacco Do You Smoke? No [email or web address] Information not available 04/22/2024 Has Tobacco Cessation Counseling Been Provided? No [email or web address] Information not available 04/22/2024 Sex: Unknown Functional Status Question Answer Note LastModified by Organizat ion Details LastModified Time How many times per week do you consume alcohol? Less than 1 time per week [email or web address] Information not available 04/22/2024 Do you use any illicit or recreational drugs? No [email or web address] Information not available 04/22/2024 Do you or have you ever used any other forms of tobacco or nicotine? No [email or web address] Information not available 04/22/2024 What is your level of alcohol consumption? Occasional Information not available 04/22/2024 Are you currently employed? No retired [email or web address] Information not available 04/22/2024 Mental Status None recorded. Family History Relationship Description Onset Age of this Age Resolved Age Notes LastModified by Organization Details LastModified Time Father No current problems or disability [email or web address] Not available 10:32:20 Mother No current problems or disability [email or web address] Not available 10:32:20 Medical History Condition Response Coronary Artery Disease N Other N Gout N Kidney Cyst N Kidney Stones N Enlarged Prostate N Heart Arrhythmia N Erectile Dysfunction Y Head Trauma/Injury N Emphysema N Sexually Transmitted Disease N Depression N Pneumonia N Incontinence N Prostate Problems N Cancer Prostate N Paralysis N Anxiety Disorder N Hemorrhoids N Obesity N Arthritis Y Infertility N Acid Reflux (GERD) Y Cancer N Hematuria N Stroke N Neck Injury N Previous Radiation Therapy? N Neurologic Disorder N Kidney Disease N Heart Conditions N If you get up at night to urinate, how m any times? Y Kidney or Bladder Problems N Constipation N Urinary Problems N Brain Injury N Ulcers Y Do you get up at night to urinate? Y Prostate Hypertrophy N Low Testosterone N Tuberculosis N Previous Chemotherapy? N AIDS/HIV N BPH N Urinary Tract Infection N Asthma N Cardiac Disease N Thyroid Disorder N Hepatitis N PCOS N Colon Cancer N Hernia Y Colon/Rectal Disorders N Ostomy N Glaucoma N Pacemaker N Anesthesia Complications N Genitourinary Disease N Chronic Kidney Disease N Radiation Therapy N Bladder or Kidney Problems N Back Injury N High Cholesterol N High PSA N Liver Disease N Nervous System Disorder N Organ Transplant N Dialysis N Allergies/Hayfever Y False Teeth N Chronic Obstructive Pulmonary Disease N Parkinson's Disease N Chemotherapy N Transplant N Anemia N Multiple Sclerosis N Chest Pain N Back Pain Y Proteinuria N Heart Attack (AL) N Mental Illness N Diabetes N Ovarian Cancer N Seizures/Epilepsy N Genitourinary problem(s) N Congestive Heart Failure (CHF) N Kidney Failure N Sleep Apnea N Bronchitis N Heart Disease N Hypertension Y Past Encounters Encounter ID Performer Location Encounter Start Date Encounter Closed Date Diagnosis/Indication Diagnosis SNOMED-CT Code Diagnosis ICD10 Code Diagnosis Note [id number] GISELLE ALOMDOVAR JR, MD [address] [place] [address] 12/02/2024 08:39:27 12/07/2024 04:14:16 Prostate specific antigen above reference range 938393119 R97.20 - Monitor PSA levels. - Obtain blood sample for evaluation . - Emphasized PSA monitoring . Health Concerns Section Related Observation LastModified by Organization Detai ls LastModified Time None Recorded Concern Status LastModified by Organization Details LastModified Time None Recorded Payers Encounter Date Sequence Insurance Name Policy Number Policy Myers Covered Member ID Myers Member ID Guarantor Name 12/02/2024 1 [employer]: JAVED WICK OF [place] [employer] (MEDICARE REPLACEMENT HMO) [id number] Donny Fitch [id number] Donny Fitch Notes Date Note Type Note Provider Name and Address Organization Details Recorded Time 12/02/2024 text/html The patient is a 69-year-old male presenting with an elevated PSA. Past evaluations include a negative prostate biopsy. PSA elevated to 37.1 ng/mL in 2023, normalized after antibiotic treatment. No recent prostate infections; sinus infections reported. Not on prostate medications. Follow-up involves monitoring PSA levels. GISELLE ALMODOVAR JR, MD [facility] [place], [address], [facility] 12/06/2024 11:51:05
--- OUTSIDE RECORDS SUMMARY | 2024-12-31 09:59 | XMS_ITS | Data Portability ---
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 If PSA remains elevated I recommend moving forward with prostate MRI and renal panel. Will also try to obtain any outside PSA data for comparison. Will also have patient red devil back to his PCP to address the elevated WBC. My coordinator will be working with the patient and his to establish this plan. [email or web address] Not available 04/05/2022 15:01:26 12/31/2022 12/31/2022 Will obtain seru m PSA is stable will repeat in 6 months and maintain a 6 months surveillance pattern. Also discussed options for treating ED prescribed Tadalafil 20 mg 1/2- 1 po q 36 hr PRN. potential side effects also discussed with patient and include but are not limited to priapism, headache, facial flushing, nasal congestion and potentially less common side effects and drug interactions. He will avoid taking the medication at time of his blood pressure medicine. [email or web address] Not available 12/31/2022 15:09:44 01/03/2023 01/03/2023 Data discussed with patient both past and more recent. Options outlined with the patient. Based on discussion of these options he elects to undergo a 4K score / PSA with renal panel. I will discuss the 4K score and PSA result with him at that time and if the risk stratification is unsatisfactory will then move to prostate MRI for a more definitive look for intra prostate lesions of concern that could potentially warrant biopsy. If the 4K score/PSA data is favorable would then consider an ongoing watch and wait approach/surveill ance. Not available 01/03/2023 15:35:59 02/06/2023 02/06/2023 I have discussed the PSA, 4K score and% free PSA data with the patient. Based on this data he is comfortable with a watch and wait approach and will return in April prior to his departure for [place] for the winter. Will have a PSA drawn around that time and if stable continue watch and wait approach with follow-up after he returns from [place] in the spring. If PSA becomes in increasing issue, would then consider prostate MRI. I have offered various options for treatment of erectile dysfunction but none of them were satisfactory at this time he continue his generic Cialis and notify me down another pathway such as vacuum pump or ICI. [email or web address] Not available 02/06/2023 16:54:07 Plan of Treatment Reminders Order Date Submit Date Provider Last Modified By Organization Details Last Modified Time Details Appointments None recorded. Lab urinalysis , dipstick [email or web address] [facility], [address] [place] [address], [address], [address], 3 08:57:24 PSA, serum or plasma 2022 023 CARLOS MANUEL Not available 3 11:59:06 PSA, serum or plasma 2022 023 CARLOS MANUEL Not available 3 16:43:07 urinalysis , dipstick 2022 023 [email or web address] 1 [facility], [address] [place] [address], [address], [address], 3 15:56:22 PSA, serum or plasma 2022 023 [facility], [address] [place] [address], [facility] [address], [address], 3 16:57:33 urinalysis , dipstick [address] [facility], [address] [place] [address], [address] [place], [address], 3 16:03:29 urinalysis , dipstick [address] [facility], [address] [place] [address], [address], [place], [address], 2 11:55:37 renal function panel, serum [address] [facility], [address] [place] [address], [address], [place], [address], 2 11:55:37 PSA, serum or plasma 2021 [facility], [address] [place] [address], [address], [place], [address], 2 02:02:23 Referral None recorded. Procedures None recorded. Surgeries None recorded. Imaging None recorded. Medication Orders tadalafil 20 mg tablet 2022 023 [email or web address] 1 [id number], [address] [place], [address], 3 15:56:22 Patient TargetsNo targets recorded. Patient InstructionsNo instructions recorded. Reason for Referral None Reported. Results Created Date Observation Date Name Description Value Unit Range Abnormal Flag Note LastModifiedBy Organization Detail LastModifiedTime 04/05/2004/05/2022 RENAL FUNCT ION PANEL sodium 139 mmol/ L 136-14 5 Not Available [facility] ([facility]) [address], [place], [address], 04/05/2022 13:46:53 04/05/2004/05/2022 RENAL FUNCT ION PANEL potassium 4.0 mmol/ L 3.6-5. 0 Not Available [facility] ([facility]) [address], [place], [address], 04/05/2022 13:46:53 04/05/2004/05/2022 RENAL FUNCT ION PANEL chloride 105 mmol/ L 98-107 Not Available [facility] ([facility]) [address], [place], [address], 04/05/2022 13:46:53 04/05/20 22 04/05/2022 RENAL FUNCT ION PANEL carbon dioxide 22.3 mmol/ L 21.0-3 2.0 Not Available [facility] ([facility]) [address], [place], [address], 04/05/2022 13:46:53 04/05/2004/05/2022 RENAL FUNCT ION PANEL anion gap 15.7 Not Available [facility] ([facility]) [address], [place], [address], 04/05/2022 13:46:53 04/05/2004/05/2022 RENAL FUNCT ION PANEL glucose 90 mg/dL 70-120 Not Available [facility] ([facility]) [address] , [place], [address], 04/05/2022 13:46:53 04/05/2004/05/2022 RENAL FUNCT ION PANEL BUN 19 mg/dL 7-18 high Not Available [facility] ([facility]) [address] , [place], [address], 04/05/2022 13:46:53 04/05/2004/05/2022 RENAL FUNCT ION PANEL creatinine 1.2 mg/dL 0.6-1. 3 Not Available [facility] ([facility]) [address] , [place], [address], 04/05/2022 13:46:53 04/05/20 22 04/05/2022 RENAL FUNCT ION PANEL albumin 3.8 g/dL 3.4-5. 0 Not Available [facility] ([facility]) [address], [place], [address], 04/05/2022 13:46:53 04/05/2004/05/2022 RENAL FUNCT ION PANEL calcium 8.7 mg/dL 8.5-10 .5 Not Available [facility] ([facility]) [address], [place], [address], 04/05/2022 13:46:53 04/05/2004/05/2022 RENAL FUNCT ION PANEL phosphorus 3.7 mg/dL 2.5-4. 9 Not Available [facility] ([facility]) [address], [place], [address], 04/05/2022 13:46:53 04/05/2004/05/2022 PROST ATE SPECI FIC AG (PSA) prostate specific Ag (PSA) 3.7 NG/mL 0-4.0 Not Available [facility] ([facility]) [address], [place], [address], 04/05/2022 15:07:11 04/05/2004/05/2022 urina lysis , dipst ick Leukocytes (reference range) negati ve Not Available [facility] [address] [place] [address], [address], 04/05/2022 11:04:42 04/05/2004/05/2022 urina lysis , dipst ick Nitrite (reference range:) negati ve Not Available [facility] [address] [place] [address] [place] [address], [address], 04/05/2022 11:04:42 04/05/2004/05/2022 urina lysis , dipst ick Urobilinogen (reference range) 0.2 Not Available [facility] [address] [place] [address] [place] [address], [address], 04/05/2022 11:04:42 04/05/20 22 04/05/2022 urina lysis , dipst ick Protein (reference range) negati ve Not Available [facility] [address] [place] [address] [address], [place], [address], 04/05/2022 11:04:42 04/05/2004/05/2022 urina lysis , dipst ick pH (reference range 5-8.5) 5.0 Not Available [facility] [address] [place] [address] [address], [place], [address], 04/05/2022 11:04:42 04/05/2004/05/2022 urina lysis , dipst ick Blood (reference range:) non-He molyze d: Trace Not Available [address] [address], [place], [address], 04/05/2022 11:04:42 04/05/2004/05/2022 urina lysis , dipst ick Specific [place] (reference range) 1.015 Not Available [facility] [place] [address], [place], [address], 04/05/2022 11:04:42 04/05/2004/05/2022 urina lysis , dipst ick Ketone (reference range) negati ve Not Available [address] [address], [place], [address], 04/05/2022 11:04:42 04/05/2004/05/2022 urina lysis , dipst ick Bilirubin (reference range) negati ve Not Available [address] [address], [place], [address], 04/05/2022 11:04:42 04/05/20 22 04/05/2022 urina lysis , dipst ick Glucose (reference range) negati ve Not Available [address] [address], [place], [address], 04/05/2022 11:04:42 04/05/20 22 04/05/2022 urina lysis , dipst ick Color (reference range: yellow-brown ) Yellow Not Available [facility] [address] [facility] [address], [place], [address], 04/05/2022 11:04:42 09/04/19 23 09/03/2022 PROST ATE SPECI FIC AG (PSA) prostate specific Ag (PSA) 3.8 NG/mL 0-4.0 Not Available [facility] ([facility]) [address] [facility], [place], [address], 09/03/2022 16:57:33 09/04/19 23 09/03/2022 urina lysis , dipst ick Leukocytes (reference range) negati ve Not Available [facility] [address] [place] [address] [address], [place], [address], 09/03/2022 14:46:51 09/04/19 23 09/03/2022 urina lysis , dipst ick Nitrite (reference range:) negati ve Not Available [facility] [address] [place] [address] [address], [place], [address], 09/03/2022 14:46:51 09/04/19 23 09/03/2022 urina lysis , dipst ick Urobilinogen (reference range) 0.2 Not Available [facility] [address] [place] [address] [address], [place], [address], 09/03/2022 14:46:51 09/04/19 23 09/03/2022 urina lysis , dipst ick Protein (reference range) negati ve Not Available [facility] [address] [place] [address] [address], [place], [address], 09/03/2022 14:46:51 0309/03/2022 urina lysis , dipst ick pH (reference range 5-8.5) 6.0 Not Available [facility] [address] [place] [address] [address], [place], [address], 09/03/2022 14:46:51 09/04/1909/03/2022 urina lysis , dipst ick Blood (reference range:) negati ve Not Available [facility] [address] [place] [address] [address], [place], [address], 09/03/2022 14:46:51 09/04/1909/03/2022 urina lysis , dipst ick Specific [place] (reference range) 1.020 Not Available [facility] [address] [place] [address] [address], [place], [address], 09/03/2022 14:46:51 09/04/1909/03/2022 urina lysis , dipst ick Ketone (reference range) negati ve Not Available [facility] [address], [place], [address], 09/03/2022 14:46:51 09/04/1909/03/2022 urina lysis , dipst ick Bilirubin (reference range) negati ve Not Available [facility] [address], [place], [address], 09/03/2022 14:46:51 09/04/1909/03/2022 urina lysis , dipst ick Glucose (reference range) negati ve Not Available [address], [place], [address], 09/03/2022 14:46:51 09/04/1909/03/2022 urina lysis , dipst ick Color (reference range: yellow-brown ) Pale Yellow Not Available [facility] [address], [place], [address], 09/03/2022 14:46:51 01/01/20 23 12/31/2022 PROST ATE SPECI FIC AG (PSA) prostate specific Ag (PSA) 5.1 NG/mL 0-4.0 high Not Available [facility] ([facility]) [address] [facility], [place], [address], 12/31/2022 16:43:07 01/01/20 23 12/31/2022 urina lysis , dipst ick Leukocytes (reference range) negati ve Not Available [facility] [address], [place], [address], 12/24/2022 12:50:41 01/01/20 23 12/31/2022 urina lysis , dipst ick Nitrite (reference range:) negati ve Not Available [facility] [address], [place], [address], 12/24/2022 12:50:41 01/01/20 23 12/31/2022 urina lysis , dipst ick Urobilinogen (reference range) 0.2 Not Available [facility], [place], [address], 12/24/2022 12:50:41 01/01/20 23 12/31/2022 urina lysis , dipst ick Protein (reference range) negati ve Not Available [address], [place], [address], 12/24/2022 12:50:41 01/01/20 23 12/31/2022 urina lysis , dipst ick pH (reference range 5-8.5) 6.5 Not Available [facility], [place], [address], 12/24/2022 12:50:41 01/01/20 23 12/31/2022 urina lysis , dipst ick Blood (reference range:) negati ve Not Available [facility] [address] [place] [address] [address], [place], [address], 12/24/2022 12:50:41 01/01/20 23 12/31/2022 urina lysis , dipst ick Specific [place] (reference range) 1.020 Not Available [facility] [address] [place] [address] [address], [place], [address], 12/24/2022 12:50:41 01/01/20 23 12/31/2022 urina lysis , dipst ick Ketone (reference range) negati ve Not Available [facility] [address] [place] [address] [address], [place], [address], 12/24/2022 12:50:41 01/01/20 23 12/31/2022 urina lysis , dipst ick Bilirubin (reference range) negati ve Not Available [facility] [address] [place] [address] [address], [place], [address], 12/24/2022 12:50:41 01/01/20 23 12/31/2022 urina lysis , dipst ick Glucose (reference range) negati ve Not Available [address], [place], [address], 12/24/2022 12:50:41 01/01/2012/31/2022 urina lysis , dipst ick Color (reference range: yellow-brown ) Yellow Not Available [facility] [address] [place] [address] [address], [place], [address], 12/24/2022 12:50:41 02/07/20 23 02/06/2023 urina lysis , dipst ick Leukocytes (reference range) negati ve Not Available [facility] [address] [place] [address] [address], [place], [address], 02/06/2023 16:00:55 02/07/20 23 02/06/2023 urina lysis , dipst ick Nitrite (reference range:) negati ve Not Available [facility] [address] [place] [address] [address], [place], [address], 02/06/2023 16:00:55 02/07/20 23 02/06/2023 urina lysis , dipst ick Urobilinogen (reference range) 0.2 Not Available [facility] [address] [place] [address] [address], [place], [address], 02/06/2023 16:00:55 02/07/20 23 02/06/2023 urina lysis , dipst ick Protein (reference range) negati ve Not Available [address], [place], [address], 02/06/2023 16:00:55 02/07/20 23 02/06/2023 urina lysis , dipst ick pH (reference range 5-8.5) 5.0 Not Available [facility], [place], [address], 02/06/2023 16:00:55 02/07/20 23 02/06/2023 urina lysis , dipst ick Blood (reference range:) negati ve Not Available [address], [place], [address], 02/06/2023 16:00:55 02/07/20 23 02/06/2023 urina lysis , dipst ick Specific [place] (reference range) 1.015 Not Available [address], [place], [address], 02/06/2023 16:00:55 02/07/20 23 02/06/2023 urina lysis , dipst ick Ketone (reference range) negati ve Not Available [facility] [address] [place] [address] [address], [place], [address], 02/06/2023 16:00:55 02/07/20 23 02/06/2023 urina lysis , dipst ick Bilirubin (reference range) negati ve Not Available [facility] [address] [place] [address] [address], [place], [address], 02/06/2023 16:00:55 02/07/20 23 02/06/2023 urina lysis , dipst ick Glucose (reference range) 100 Not Available [facility] [address] [place] [address] [address], [place], [address], 02/06/2023 16:00:55 02/07/20 23 02/06/2023 urina lysis , dipst ick Color (reference range: yellow-brown ) Yellow Not Available [address], [place], [address], 02/06/2023 16:00:55 Result Notes None recorded. Problems Name Problem SNOMED Code Status Onset Date Resolution Date Notes Provider Name and Address Organization Details Recorded Time Prostate specific antigen above reference range 962090127 Active 022 ANGELA Tavarez [facility] & [place] 10:50:33 Problem Notes None recorded. Medical Equipment None Reported. Allergies Allergen ID Allergen Name Allergen Category Reaction Reaction Severity Criticality Documentation Date Start Date Code Code System Note Provider Name and Address Organization Details Recorded Time 78277 Product containin g 3-hydroxy -3-methyl glutaryl- coenzyme A reductase inhibitor (product) medicatio n Not available Not available high 03/20/2022 90300 009 SNOMED ANGELA Tavarez [facility] & [place] 2 10:49:52 Medications Name Sig Start Date Stop Date Status Note LastModified by Organization Details LastModified Time amoxicillin 500 mg capsule TAKE 4 CAPSULES BY MOUTH 1 HOUR PRIOR TO PROCEDURE active Not Available Not Available No t Available doxycycline hyclate 100 mg capsule TAKE [...] Not Available Not Available No t Available hydrocodone 5 mg-acetamin ophen 325 mg tablet TAKE ONE TABLET BY MOUTH EVERY 4 TO 6 HOURS NEEDED FOR PAIN 04/05 completed Not Available Not Available Not Available prednisone 20 mg tablet TAKE 1 TABLET BY MOUTH TWICE A DAY ADMINISTE R WITH FOOD OR MILK active Not Available Not Available No t Available valsartan 80 mg tablet TAKE 1 TABLET (80 MG TOTAL) BY MOUTH IN THE MORNING active Not Available Not Available No t Available sulfamethox azole 800 mg-trimetho prim 160 mg tablet TAKE 1 TABLET BY MOUTH DAILY UNTIL FINISHED active Not Available Not Available No t Available bromphenira mine-pseudo ephedrine-D M 2 mg-30 mg-10 mg/5 mL oral syrup active Not Available Not Available Not Available amoxicillin 875 mg-potassiu m clavulanate 125 mg tablet TAKE 1 TABLET BY MOUTH TWICE A DAY FOR 10 DAYS active Not Available Not Available No t Available tadalafil 20 mg tablet TAKE 1/2 TO 1 TABLET BY MOUTH EVERY 36 HOURS NEEDED active Not Available Not Available No t Available Suprep Bowel Prep Kit 17.5 gram-3.13 gram-1.6 gram oral solution 04/05 completed Not Available Not Available Not Available Vitals Date Recorded Body height Body mass index (BMI) Body weight Body temperature Systolic And Diastolic Provider Name and Address Organization Details Last Updated DateTime 09/03/2022 177.8 cm 35 kg/m2 149913. 54 g 98.2 [degF] 122/72 mm[Hg] Sena Dolan [facility] & [place] 14:46:07 Date Recorded Body height Body mass index (BMI) Body weight Systolic And Diastolic Provider Name and Address Organization Details Last Updated DateTime 12/31/2022 177.8 cm 35 kg/m2 766689.54 g 155/88 mm[Hg] Vidhya Oneill [facility] [place] 12/31/2022 14:31:13 Date Recorded Body height Body mass index (BMI) Body weight Systolic And Diastolic Provider Name and Address Organization Details Last Updated DateTime 02/06/2023 177.8 cm 34.4 kg/m2 120551.17 g 138/78 mm[Hg] Yanely Goldberg [facility] [place] 02/06/2023 16:00:49 Date Recorded Body height Body mass index (BMI) Body weight Body temperature Systolic And Diastolic Provider Name and Address Organization Details Last Updated DateTime 04/05/2022 177.8 cm 34.1 kg/m2 371142. 55 g 97.8 [degF] 138/82 mm[Hg] Vidhya Oneill [facility] [place] 12:06:13 Social History Question Answer Notes LastModified by Organizat ion Details LastModified Time Tobacco Smoking Status Former Smoker Vidhya Oneill [facility], [facility] [place] 04/05/2022 11:03:34 When Did You Quit Smoking? 16+yearssinc elastcigaret te [email or web address] Information not available 04/05/2022 Has Tobacco Cessation Counseling Been Provided? No [email or web address] Information not available 04/05/2022 Sex: Unknown Functional Status Question Answer Note LastModified by Organizat ion Details LastModified Time Do you use any illicit or recreational drugs? No Information not available 03/20/2022 Do you or have you ever used any other forms of tobacco or nicotine? No Information not available 04/05/2022 What is your level of alcohol consumption? Occasional Information not available 03/20/2022 Mental Status None recorded. Family History Nothing Reported Notes:Mother-- Liver issues Father Medical History No medical history recorded. Past Encounters Encounter ID Performer Location Encounter Start Date Encounter Closed Date Diagnosis/Indication Diagnosis SNOMED-CT Code Diagnosis ICD10 Code Diagnosis Note [id number] Kd Palacios MD [facility],[address] [address] 04/05/2022 10:44:18 04/05/2022 12:01:56 Prostate specific antigen above reference range 085347184 R97.20 Nocturia 108534423 R35.1 [id number] Yanely Sheriff NP, S [facility] [address] [place] [address],[address] [place] [address] 09/03/2022 13:58:58 09/03/2022 15:24:14 Nocturia 884765334 R35.1 Prostate s pecific antigen above reference range 843368697 R97.20 UA clearPSA today, will call pt with resultsIf PSA stable, RTC in 4 months for f/u with UA and PSA [id number] Kd Palacios MD [facility] [address] [place] [address],[address] [place] [address] 4 12/31/2022 14:12:44 12/31/2022 15:00:53 Prostate specific antigen above reference range 564115743 R97.20 Nocturia 688321931 R35.1 Erectile dysfunction 860 136833 F52.21 [id number] Kd Palacios MD [facility] [address] [place] [address],[address] [place] [address] 4 01/03/2023 15:24:32 01/03/2023 15:39:59 Prostate specific antigen above reference range 997315970 R97.20 [id number] Kd Palacios MD [facility] [address] [place] [address],[address] [place] [address] 02/06/2023 15:42:12 02/06/2023 16:17:02 Prostate specific antigen above reference range 188924331 R97.20 Erectile dysfunction 860 284276 F52.21 Health Concerns Section Related Observation LastModified by Organization Detai ls LastModified Time None Recorded Concern Status LastModified by Organization Details LastModified Time None Recorded Advance Directives Directive None Recorded Payers Insurance Date Sequence Insurance Name Policy Number Policy Myers Covered Member ID Myers Member ID Guarantor Name 05/25/2022 2 [employer] (MEDICARE REPLACEMENT/A DVANTAGE - PPO) [id number] Donny Fitch [id number] Hung Fitch 09/07/2022 1 [place] Hung Fitch [id number] Hung Fitch 04/15/2024 [employer] - [employer] (MEDICARE REPLACEMENT/A DVANTAGE - HMO) Donny Fitch [id number] Hung Fitch 12/31/2022 1 *SELF PAY* [facility] Fitch 01/07/2023 1 [employer] - [employer] (MEDICARE REPLACEMENT/A DVANTAGE - HMO) Donny Fitch [id number] Hung Fitch 02/06/2023 1 [employer] - [employer] (MEDICARE REPLACEMENT/A DVANTAGE - HMO) Hung Fitch [id number] Hung Fitch Notes Date Note Type Note Provider Name and Address Organization Details Recorded Time 04/05/2022 text/html Patient presents to clinic today upon referral from Sheron Starks for evaluation of elevated PSA. The patient had a PSA of 8.4 on 03/13/2022. Interestingly, [place] [address] on that day and is unexplained. PSA was done as a screening serologies. He does not have significant lower urinary tract symptoms and does have some variation in his urinary stream. He states that approximately 18 years ago he had an elevated PSA and underwent prostate biopsies that were negative. These biopsies were done by Ronaldo Wang Sr. there have been no known modifying factors. He has nocturia 2 times per night but no hematuria, dysuria or pain. He has no family history of prostate cancer. I do not have access to other PSA values. Kd Palacios MD [address], [place], [address], [facility] & [place] 04/05/2022 15:01:55 09/03/2022 text/html 66 yowm RTC for 4 month f/u of Elevated PSA. Pt has not had a recent PSA performed. Pt underwent TRUS/BXs performed in the past per Dr Kathleen Mackenzie that was negative for malignancy. States urinary stream was good. Nocturia x1-2. Denies any dysuria, gross hematuria, wt loss, or bone pain. No fmhx of CAP. Previous PSAs: 3.7 on 04/05/2022, 8.4 on 03/13/2022 Yanely Sheriff NP, [address], [place], [address], [facility] [place] 09/03/2022 15:15:20 12/31/2022 text/html patient returns to clinic today follow-up of elevated PSA. He is now due for another PSA but has not had his blood test done yet. His last PSA had dropped to 3.8 on 09/03/2022. He tells me approximately 15 years ago his PSA spiked and he underwent prostate biopsies which apparently were negative. His PSA dropped to acceptable level thereafter. PSA had risen 8.4 on 03/13/2022. He is not having any significant LUTS, hematuria, weight loss or bone pain.His other major concern is erectile dysfunction manifest by achieving an approximate 1/3 of his normal penile rigidity. he has no penile or curvature. He has not tried any medications to treat this problem and was recently started on a blood pressure which he can not remember the name of or the prescribing provider. See Below past medical history:66 yowm RTC for 4 month f/u of Elevated PSA. Pt has not had a recent PSA performed. Pt underwent TRUS/BXs performed in the past per Dr Wang Sr that was negative for malignancy. States urinary stream was good. Nocturia x1-2. Denies any dysuria, gross hematuria, wt loss, or bone pain. No fmhx of CAP.Previous PSAs: 3.7 on 04/05/2022, 8.4 on 03/13/2022 Kd Palacios MD [address] [facility], [place], [address], [facility] [place] 12/31/2022 15:10:15 01/03/2023 text/html Phone consult Telephone consultation conducted with patient today. Patient gives informed consent and 100% of consult spent counseling patient, reviewing records and implementing treatment plan. Consult begins at 3:25 p.m. and ends at 3:31 p.m. Patient has a 15 year history of elevated PSA and has been seen by other colleagues who have performed prostate biopsies in the past. The patient had a PSA of 3.8 on 09/03/2022 but his PSA had risen to 5.1 on 12/31/2022. Patient is having no new lower urinary tract symptoms, hematuria or unexplained pain or weight loss. Past Hx: { Hx of elevated PSA. He is now due for another PSA but has not had his blood test done yet. His last PSA had dropped to 3.8 on 09/03/2022. He tells me approximately 15 years ago his PSA spiked and he underwent prostate biopsies which apparently were negative. His PSA dropped to acceptable level thereafter. PSA had risen 8.4 on 03/13/2022. He is not having any significant LUTS, hematuria, weight loss or bone pain.His other major concern is erectile dysfunction manifest by achieving an approximate 1/3 of his normal penile rigidity. he has no penile or curvature. He has not tried any medications to treat this problem and was recently started on a blood pressure which he can not remember the name of or the prescribing provider.See Below past medical history:66 yowm RTC for 4 month f/u of Elevated PSA. Pt has not had a recent PSA performed. Pt underwent TRUS/BXs performed in the past per Dr Wang Sr that was negative for malignancy. States urinary stream was good. Nocturia x1-2. Denies any dysuria, gross hematuria, wt loss, or bone pain. No fmhx of CAP.Previous PSAs: 3.7 on 04/05/2022, 8.4 on 03/13/2022} Kd Palacios MD [address] [facility], [place], [address], [facility] - [place] & [place] 01/03/2023 15:38:07 02/06/2023 text/html Patient returns to clinic today follow-up of elevated PSA and erectile dysfunction. Further his workup elevated PSA the patient underwent a 4K score that was reported on 01/19/2023 at 9.3. His PSA at that time was 4.21. % free PSA was 8% which stratified according to age puts him at a 57.5% risk of prostate cancer. Patient's main concern is erectile dysfunction. He had a trial of generic Cialis at both 10 and 20 mg doses which did not help. He also made some modifications with his other medications and food intake around the time of dosage which also did not help. Patient is not having any overt lower urinary tract symptoms, hematuria or bone pain currently. UA today is negative. See past history from 01/03/2023: Patient has a 15 year history of elevated PSA and has been seen by other colleagues who have performed prostate biopsies in the past. The patient had a PSA of 3.8 on 09/03/2022 but his PSA had risen to 5.1 on 12/31/2022. Patient is having no new lower urinary tract symptoms, hematuria or unexplained pain or weight loss. Past Hx: { Hx of elevated PSA. He is now due for another PSA but has not had his blood test done yet. His last PSA had dropped to 3.8 on 09/03/2022. He tells me approximately 15 years ago his PSA spiked and he underwent prostate biopsies which apparently were negative. His PSA dropped to acceptable level thereafter. PSA had risen 8.4 on 03/13/2022. He is not having any significant LUTS, hematuria, weight loss or bone pain.His other major concern is erectile dysfunction manifest by achieving an approximate 1/3 of his normal penile rigidity. he has no penile or curvature. He has not tried any medications to treat this problem and was recently started on a blood pressure which he can not remember the name of or the prescribing provider.See Below past medical history:66 yowm RTC for 4 month f/u of Elevated PSA. Pt has not had a recent PSA performed. Pt underwent TRUS/BXs performed in the past per Dr Wang Sr that was negative for malignancy. States urinary stream was good. Nocturia x1-2. Denies any dysuria, gross hematuria, wt loss, or bone pain. No fmhx of CAP.Previous PSAs: 3.7 on 04/05/2022, 8.4 on 03/13/2022} Kd Palacios MD [address] [address], [place], [address], [facility] [place] [facility] [place] & [place] 02/06/2023 16:54:27
== END 2024-12-31 23:59 | disposition home or self-care (01) ==
LOC: RAD 09:55
PROVIDERS: PCP Physician Assistant; Visit Provider Physician Assistant
DX: R93.6 Abnormal findings on diagnostic imaging of limbs (principal); M25.852 Other specified joint disorders, left hip
CPT/HCPCS: 76882

== ENCOUNTER 2025-01-27 07:25 | Outpatient (CLI) | payer MEDICARE, SELFPAY ==
--- OUTSIDE RECORDS SUMMARY | 2025-01-27 07:29 | XMS_ITS | Encounter Summary ---
Author Organization [facility] Address [address] [place] [id number] Care Team Providers Care Focuser Name Role Phone Alexia House APRN Primary Care Provider [phone] Reason for Visit * Reason Onset Date Comments Appointment 12/28/2024 Encounter Details Date Type Department Care Team (Late st Contact Info) Description 12/28/2024 Telephone [facility] GASTROENTEROLOGY [address] [facility] [address] [place] [id number] Fam Barakat MD [address] [facility] [address] [place] [id number] Appointment Social History Tobacco Use Types Packs/Day Years Used Date Smoking Tobacco: Former Cigarettes 1.5 15 1 07/28/1987 - 05/27/2003 Smokeless Tobacco: Never Alcohol Use Standard Drinks/Week Comments Yes 0 (1 standard drink = 0.6 oz pur e alcohol) couple times a week PHQ-2 Answer Date Recorded Retired Total Score 0 08/16/2021 Abuse Screen Answer Date Recorded Unsafe at Home or Work/School Not on file Feels Threatened by Someone? Not on file 03/2023 Does Anyone Keep You from Co ntacting Others or Doint Things Outside the Home? Not on file 04/02/2023 Physical Sign of Abuse Present Not on file 1 Housing Stability Answer Date Recorded Current Living Arrangements Not on file 03/24 Potentially Unsafe Housing Conditions Not on sunshine e 04/02/2023 Family and Community Support Answer Mingo e Recorded Help with Day-to-Day Activities Not on file 04/02/2023 Lonely or Isolated Not on file 04/02/2023 Employment Answer Date Recorded Do you want help finding or keeping work or a jack b? Not on file 04/02/2023 Disabilities Answer Date Recorded Concentrating, Remembering, or Making Decisions Difficulty Not on file 04/02/2023 Doing Errands Independently Difficulty Not on fi le 04/02/2023 Education Answer Date Recorded Help with school or training? Not on file Preferred Language Not on file 04/02/2023 Sex and Gender Information Value Date Recorded Sex Assigned at Not on file Legal Sex Male 1:36 PM EDT Gender Identity Not on file Sexual Orientation Not on file documented as of this encounter Miscellaneous Notes * Telephone Encounter - Tere Mtz RegSched Rep - 12/28/2024 10:07 AM EDT Caller: MARYANNE ESTES Relationship to patient: Emergency Contact Best call back number: [phone] Chief complaint: R/S PROCEDURE Type of visit: C-SCOPE Requested date: END January OR SOMETIME IN If rescheduling, when is the original appointment: 01/13/25 documented in this encounter Plan of Treatment Not on file documented as of this encounter Visit Diagnoses Not on filedocumented in this encounter Care Teams Focuser Relationship Specialty Start Date End Date Alexia House APRN [address] [place] [address] PCP - General Nurse Practitioner 05/27/19 documented as of this encounter
--- OUTSIDE RECORDS SUMMARY | 2025-01-27 07:29 | XMS_ITS | Clinical Summary ---
Author Organization [facility] Address [address] [place] [address] Care Team Providers Care Home Health Travel Pt Name Role Phone Alexia House APRN Primary Care Provider [phone] Allergies Active Allergy Reactions Criticality Noted Date Comments Statins Other (See Comments) Medium 10/28/2020 Extreme fatigue and weakness Medications cyclobenzaprine (FLEXERIL) 5 MG tabletIndicatio ns:Myalgia Take 1 tablet by mouth 3 (Three) Times a Day As Needed for Muscle Spasms. 20 tablet 1 Active lidocaine (Lidoderm) 5 % Place 1 patch on the skin as directed by provider Daily. Remove & Discard patch within 12 hours or as directed by MD 30 patch 1 Active meloxicam (Mobic) 15 MG tabletIndicatio ns:Arthralgia, unspecified joint Take 1 tablet by mouth Daily. Take with food 30 tablet 3 1 Active sodium-potassiu m-magnesium sulfates (Suprep Bowel Prep Kit) 17.5-3.13-1.6 GM/177ML solution oral solution Take 2 bottles by mouth Take As Directed. Do not eat the day before your procedure. If you didn't receive instructions call [phone]. 354 mL 2 Active Active Problems Problem Noted Date Diagnosed Date Subclinical hypothyroidism 11/01/2020 Gastroesophageal reflux disease without esophagi tis 05/28/2019 Chronic pain of both knees 05/28/2019 Encounters Date Type Department Care Team Description 12/28/2024 Telephone [facility] GASTROENTEROLOGY [address] [facility] [address] [place] [id number] Fam Barakat MD Appointment from Last 3 Months Immunizations Immunization Administration Dates Next Due COVID-19 (MARKOS) 08/26/2020 FLUAD TRI 65YR+ 05/27/2019 Fluad Quad 65+ 05/30/2020,05/27/2019 Fluzone High-Dose 65+YRS 05/27/2019 Pneumococcal Conjugate 13-Valent (PCV13) 019 Pneumococcal Polysaccharide (PPSV23) 05/30/2020 Tdap 03/07/2019 Family History Medical History Relation Name Comments Asthma Father COPD Father Cancer Mother Liver disease Mother Relation Name Status Comments Father Mother Social History Tobacco Use Types Packs/Day Years [...] Sign Reading Time Taken Comments Blood Pressure 134/88 08/16/2021 8:49 AM EST Pulse 71 08/16/2021 8:49 AM EST Temperature 36.5 C (97.7 F) 08/16/2021 8:49 AM EST Respiratory Rate 18 11/06/2020 8:01 PM EDT Oxygen Saturation 97% 08/16/2021 8:49 AM EST Inhaled Oxygen Concentration - - Weight 108 kg (238 lb) 08/16/2021 8:49 AM EST Height 177.8 cm (5' 10 ) 12/20/2020 9:45 AM EDT Body Mass Index 34.15 12/20/2020 9:45 AM EDT Plan of Treatment Health Maintenance Due Date Last Done Comments COLON CANCER SCREENING 5 YEA R SIGMOIDOSCOPY 1998 CT COLONOGRAPHY 1998 FECAL OCCULT BLOOD TEST 1998 FIT Testing (1 year) 1998 ZOSTER VACCINE (1 of 2) 11/11/2003 ANNUAL WELLNESS VISIT 08/16/2022 08/16/2021 , 08/16/2021, 05/30/2020, Additional history exists COVID-19 Vaccine (2023-2 5 season) 2024 04/27/2021, 08/26/2020 COLOGUARD 09/07/2024 09/07/2021, 08/17/2021 COLONOSCOPY 12/19/2024 12/19/2021 COLORECTAL CANCER SCREENING 12/19/2024 INFLUENZA VACCINE 03/24/2025 05/30/2020, , 05/27/2019, Additional history exists TDAP/TD VACCINES Discontinued 03/07/2019 HEPATITIS C SCREENING Completed 05/27/2019 Pneumococcal Vaccine 50+ Completed 05/30/2020, 1209/2018 AAA SCREEN ONCE Completed 11/06/2020, 06/08/2019 Procedures Procedure Name Priority Date/Time Associated Diagnosis Comments SCANNED - COLONOSCOPY 12/19/2021 COLOGUARD Routine 09/07/2021 Screen for colon cancer CT ABDOMEN PELVIS W CONTRAST STAT 11/06/2020 9:19 PM EDT HEPATITIS C ANTIBODY Routine 05/27/2019 10:12 AM EST Welcome to Medicare preventive visit from Last 3 Months or Most Recently Relevant to Health Maintenance Results * SCANNED - COLONOSCOPY (12/19/2021) Fam Barakat MD CHART REVIEW T ABS Final Result * Cologuard - Stool, Per Rectum (09/07/2021) Stool Specimen from rectum / Unknown Alexia House SAMPLE BODY BUILDER BODY FLUIDS AND STOOLS OR DERABLES Final Result [email or web address]
[address] [place] [address], * CT Abdomen Pelvis With Contrast (11/06/2020 9:19 PM EDT) Anatomical Region Laterality Modality Abdomen, Pelvis N/A Computed Tomogra phy 11/06/2020 9:30 PM EDT Impressions 11/06/2020 9:30 PM EDT Normal appendix. No urinary stones Degenerative changes lumbar spine Otherwise normal Signer Name: Alfredo Elizondo MD Signed: 11/06/2020 9:30 PM Workstation Name: [facility] Narrative 11/06/2020 9:[address] Abdomen Pelvis W INDICATION: Right-sided renal colic type pain for 2 weeks, recent diagnosis of shingles TECHNIQUE: CT of the abdomen and pelvis with IV contrast. Coronal and sagittal reconstructions were obtained. Radiation dose reduction techniques included automated exposure control or exposure modulation based on body size. Count of known CT and cardiac nuc med studies performed in previous 12 months: 0. COMPARISON: None available. FINDINGS: Abdomen: There is minimal right base atelectasis liver has a 2.7 cm simple cyst and a 1.5 cm simple cyst. The gallbladder is normal. The spleen, pancreas and adrenal glands are normal. Both kidneys are normal in appearance. Aorta is normal in size. There is no adenopathy. The appendix is normal. The bowel is normal. Pelvis: Bladder and prostate gland are normal. Bones show degenerative changes lumbar spine. Procedure Note Alfredo Elizondo MD - 11/06/2020 CT Abdomen Pelvis W INDICATION: Right-sided renal colic type pain for 2 weeks, recent diagnosis ofshingles TECHNIQUE: CT of the abdomen and pelvis with IV contrast. Coronal and sagittalreconstructions were obtained. Radiation dose reduction techniquesincluded automated exposure control or exposure modulation based on bodysize. Count of known CT and cardiac nuc med studies performed in previous 12 months: 0. COMPARISON: None available. FINDINGS: Abdomen: There is minimal right base atelectasis liver has a 2.7 cm simplecyst and a 1.5 cm simple cyst. The gallbladder is normal. The spleen,pancreas and adrenal glands are normal. Both kidneys are normal inappearance. Aorta is normal in size. There is no adenopathy. The appendix is normal. The bowel is normal. Pelvis: Bladder and prostate gland are normal. Bones show degenerativechanges lumbar spine. IMPRESSION: Normal appendix. No urinary stones Degenerative changes lumbar spine Otherwise normal Signer Name: Alrfedo Elizondo MD Signed: 11/06/2020 9:30 PM Workstation Name: [facility] Darleen Hawthorne PA-C IMG CT ORDERABLES Final Resul t * Hepatitis C Antibody (05/27/2019 10:12 AM EST) Hep C Virus Ab <0.1 0.0 - 0.9 s/co ratio [facility] Comment: Negative: < 0.8 Indeterminate: 0.8 - 0.9 Positive: > 0.9 The CDC recommends that a positive HCV antibody result be followed up with a HCV Nucleic Acid Amplification test (815315). Blood 05/27/2019 10:1 2 AM EST 05/27/2019 Comment:BLOOD MANUAL DIFFERE N Narrative [facility] - 05/28/2019 5:35 AM EST Performed at: [address] [place] [address] [place], [place] [id number] Social Science Research Assistant: Carlton Carson PhD, Phone: [phone] us Alexia House APRN LAB BLOOD ORDERABLES Shirley l Result [facility] [address] [place] [address], [facility] [address] [place] [address], from Last 3 Months or Most Recently Relevant to Health Maintenance Insurance [facility] MEDICARE ADVANTAGE [facility] MEDICARE ADVANTAGE HMO Care Teams Home Health Travel Pt Relationship Specialty Start Date End Date Alexia House APRN [address] [place] [id number] PCP - General Nurse Practitioner 05/27/19
--- OUTSIDE RECORDS SUMMARY | 2025-01-27 07:29 | XMS_ITS | Encounter Summary ---
Author Organization [employer] ([place], [place], [place], [place]) Address [address] [place] [address] Care Team Providers Care Soil Conservationist Name Role Phone Sheron Starks PA-C Primary Care Provider [phone] Reason for Visit * Reason Comments Medication Refill Encounter Details Date Type Department Care Team (Late st Contact Info) Description 04/13/2023 Refill [facility] Cardiology [address] [place] [address] Hung Sinha MD [address] [facility] [address] [place] [address] Primary hypertension Social History Tobacco Use Types Packs/Day Years Used Date Smoking Tobacco: Former Cigarettes Q uit: 2004 Smokeless Tobacco: Never Alcohol Use Standard Drinks/Week [...] hypertension documented in this encounter Care Teams Soil Conservationist Relationship Specialty Start Date End Date Sheron Starks PA-C [address] [place] [address] PCP - General Physician Staffing Associate 05/10/22 documented as of this encounter
--- OUTSIDE RECORDS SUMMARY | 2025-01-27 07:29 | XMS_ITS | Clinical Summary ---
Author Organization [employer] ([place], [place], [place], [place]) Address [address] [place] [address] Care Team Providers Care Dip Tanker Name Role Phone Sheron Starks PA-C Primary Care Provider [phone] Allergies Active Allergy Reactions Criticality Noted Date Comments Qvoxbum-Zxd-Yad Reductase Inhibitors Medium 10/28/2020 Other reaction(s): Other [...] Resolved Date Coronary artery disease invo lving picayune coronary artery of picayune heart, unspecified whether angina present 06/08/2022 06/08/2022 [...] Date Angel rded Speak language other than Togolese at home Not on file 07/05/2023 Want [...] 2018 Insurance [employer] MEDICARE HMO Care Teams Dip Tanker Relationship Specialty Start Date End Date Sheron Starks PA-C [address] [place] [address] PCP - General Physician Glass Laminating Operator 05/10/22
--- OUTSIDE RECORDS SUMMARY | 2025-01-27 07:29 | XMS_ITS | Referral Summary ---
Author Organization [employer] ([place], [place], [place], [place]) Address [address] [place] [address] Care Team Providers Care Cotton Ball Machine Tender Name Role Phone Sheron Starks PA-C Primary Care Provider [phone] Allergies Active Allergy Reactions Criticality Noted Date Comments Hxlorpg-Vdv-Whr Reductase Inhibitors Medium 10/28/2020 Other reaction(s): Other [...] Resolved Date Coronary artery disease invo lving habematolel coronary artery of habematolel heart, unspecified whether angina present 06/08/2022 06/08/2022 [...] Date Angel rded Speak language other than Pakistani at home Not on file 07/05/2023 Want [...] Plan of Treatment Not on file Insurance [facility] MEDICARE HMO Care Teams Cotton Ball Machine Tender Relationship Specialty Start Date End Date Sheron Starks PA-C [address] [place] [address] PCP - General Physician Machine Bander And Cellophaner 05/10/22
--- OUTSIDE RECORDS SUMMARY | 2025-01-27 07:29 | XMS_ITS | Clinical Summary ---
Author Organization [facility] Address [address] [place] [address] Care Team Providers Care Documentation Analyst Name Role Phone Unavailable Primary Care Provider [...] Date Last Done Comments [facility]-Depression Screening 1955 [facility]-Infant/Child/Adol SDOH Screenings 1955 [facility]- SDOH Screenings 11/11/1971 [facility]-Adult SDOH Screenings 11/11/1971 [facility]-DTaP,Tdap,and Td Vaccine s (1 - Tdap) 1972 CT Colonography 1998 Colonoscopy 1998 FIT-DNA 1998 FIT 1998 FOBT 1998 Sigmoidoscopy 1998 [facility]-Colorectal Cancer Screening 1998 [facility]-Pneumococcal Vaccine: 50 + Years (1 of 1 - PCV) 11/11/2003 [facility]-Zoster Vaccines (1 of 2) 11/11/2003 [id number] Vaccine (1 - 20 24-25 season) 2024 [...]
--- NOTE | 2025-01-27 07:38 | CT_ITS ---
FINAL REPORT CLINICAL HISTORY: ABNORMAL FINDINGS ON DX IMAGING ULTRASOUND FINDINGS: Probable seroma at the region of interest. Recommend infused CT through the pelvis to better evaluate. COMPARISON: 12/31/2024 FINDINGS: Axial images through the pelvis were performed by computed tomography afther the administration of IV and oral contrast. Sagittal and coronal reconstruction images were performed. This study was performed with techniques to keep radiation doses as low as reasonably achievable (ALARA). Individualized dose reduction techniques using automated exposure control or adjustment of mA and/or kV according to the patient's size were employed. The appendix is normal. There are calcifications in the prostate. A bilobed, cystic structure is seen lateral to the proximal left femur measuring up to 8.6 cm in craniocaudad dimension and 4.4 cm in transverse dimension. Findings are probably due to chronic hematoma/seroma. 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 IMPRESSION: Bilobed cystic structure lateral to the proximal left femur likely related to chronic hematoma/seroma. Reviewed, Interpreted and Dictated by Cullen Sanford MD Transcribed by Leah Quach Authenticated and [facility]
[2025-01-27 08:08] LABS: Blood Urea Nitrogen 13 mg/dl (9-20); Creatinine,Serum 1.00 mg/dl (0.66-1.25); Estimated Glomerular Filt Rate 74 ml/min (>60); GFR (African American) 89 ML/MIN (>60)
[2025-01-27] MEDS: IOPAMIDOL-370 (76%);100ML BOTTLE 75 ML IV (08:46)
[2025-01-27] MEDS: SODIUM CHLORIDE 0.9% 10ML SYR (RAD ONLY) 10 ML IV (08:46)
== END 2025-01-27 23:59 | disposition home or self-care (01) ==
LOC: RAD 07:27
PROVIDERS: PCP Physician Assistant; Visit Provider Physician Assistant
DX: R93.89 Abnormal findings on diagnostic imaging of other specified body structures (principal); M16.0 Bilateral primary osteoarthritis of hip
CPT/HCPCS: 36415; 72193; 82565; 84520; Q9967